=== PATIENT | male | born 1935 | race Caucasian/White ===

== ENCOUNTER 2016-09-26 06:37 | Emergency (ER) | payer MEDICARE, OTHER ==
[~2016-09-26] VITALS: Ht 170.2 cm; Wt 79.2 kg
[2016-09-26 06:37] VITALS: Ht 170.2 cm; Wt 79.2 kg
[~2016-09-26 06:37] MED LIST: ACET-1770 PO; ACET-2723 PO; AMOX500C2 PO; CALC-278 PO; CALC625T66 PO; CIPR250T6 PO; CYAN10006 INJ; FERR-49 PO; L.AC1CAP6 PO; LETR2.5T4 PO; MELA5TAB14 PO; NEBI5TAB8 PO; POLY17PO6 PO
--- OUTSIDE RECORDS SUMMARY | 2016-09-26 06:41 | XMS REPORT | Continuity of Care Document ---
Author Author Perri Rayo Address Unknown Phone Unavailable Care Team Providers Care Key Holder Name Role Phone [employer] Unavailable Unavailable Problems Medications Allergies, Adverse Reactions, Alerts Immunizations Results Vital Signs Encounters Procedures Plan of Care Social History Assessment and Plan Family History Value Date Source Advance Directives Order Name Results Value Date Source
--- OUTSIDE RECORDS SUMMARY | 2016-09-26 06:42 | XMS REPORT | Continuity of Care Document ---
Author Author [facility] Organization [facility] Address Unknown Phone Unavailable Support Name Relationship Address Phone SWATI BRUCE Caregiver [facility] [address] [place] [address] SARAH ADEN MD Caregiver [address] [place], [place] [phone] JESUS DYSON Next Of Kin [address] [place], [place] [address] CP Insurance Providers Payer Name Policy Number Subscriber Name Relationship Auto A Insurance [id number] Jorge Dyson 19 Self Medicare [facility] [employer] Pffs [id number] Jorge Dyson 19 Self Advance Directives Directive Response Recorded Date/Time Advanced Directives Type DPOA for Healthcare 04/12/14 4:30pm Problems Medical Problems Problem Onset Date Status Transient behavioral changes Unknown Active Transient confusion Unknown Active FALL Unknown Active nosebleed Unknown Active nondisplaced nasal arch fracture Unknown Active small laceration to Bridge of Nose-Dermabonded Unknown Active Right wrist sprain Unknown Active Minor head injury without loss of consciousness Unknown Active Fall at home Unknown Active Right wrist sprain Unknown Active Minor head injury without loss of consciousness Unknown Active Fall from slip, trip, or stumble Unknown Active Minor head injury without loss of consciousness Unknown Active Orbital contusion Unknown Active Traumatic hematoma of right orbit Unknown Active Scalp laceration Unknown Active Head contusion Unknown Active Traumatic hematoma of right eyebrow Unknown Active Suspected DVT (deep vein thrombosis) 04/10/2014 Active Leg swelling Unknown Active Cellulitis Unknown Active Leg swelling Unknown Active Cellulitis Unknown Active Medications Medication Dose Route Sig Days/Qty Instructions Order Date Discontinued Date Status Olmesartan Medoxomil 20 Mg PO DAILY 01/07/09 08/04/11 Discontinued Aspirin/Acetaminophen/Ed Carb 1 Tab PO DAILY 01/07/09 08/04/11 Discontinued Naproxen Sodium 220 Mg PO DAILY 11/01/10 08/04/11 Discontinued Docusate Sodium 100 Mg PO TWICE A DAY 11/05/10 08/04/11 Discontinued Polyethylene Glycol 3350 12 Ea PO DAILY 11/05/10 08/04/11 Discontinued [Asa 81MG] PO DAILY 11/05/10 08/04/11 Discontinued Benazepril Hcl 20 Mg PO DAILY 11/05/10 08/04/11 Discontinued Olmesartan Medoxomil 20 Mg PO DAILY 11/05/10 08/04/11 Discontinued Fondaparinux Sodium 2.5 Mg SQ DAILY 11/05/10 08/04/11 Discontinued Alendronate Sodium 70 Mg PO WEEKLY 08/04/11 09/08/12 Discontinued Nebivolol Hcl 5 Mg PO DAILY 08/04/11 10/21/11 Discontinued Tamoxifen Citrate 20 Mg PO DAILY 08/04/11 01/12/12 Discontinued Dutasteride 0.5 Mg PO DAILY 08/04/11 Active Furosemide 20 Mg PO TWICE A DAY 08/04/11 04/08/12 Discontinued Potassium Chloride 10 Meq PO DAILY 08/04/11 Active Calcium Citrate/Vitamin D3 1 Tab PO DAILY 08/04/11 09/08/12 Discontinued Docusate Sodium 100 Mg PO TWICE A DAY 08/04/11 Active Acetaminophen/Dp-Hydram Hcl 1 Tab PO BEDTIME 08/04/11 09/06/11 Discontinued [Rapaflo 8MG] BEDTIME 08/04/11 10/19/11 Discontinued Amoxicillin Trihydrate 500 Mg PO THREE TIMES A DAY started 08/04 and to take for 10 days for upper respiratory infection 08/08/11 09/01/11 Discontinued Guaifenesin/D-Methorphan Hb 2 Tab.sr PO TWICE A DAY 09/06/11 Discontinued Pravastatin Sodium 40 Mg PO BEDTIME 10/19/11 01/19/12 Discontinued Donepezil Hcl 10 Mg PO BEDTIME 10/19/11 Active Trospium Chloride 20 Mg PO TWICE A DAY 10/19/11 01/12/12 Discontinued Acetaminophen BEDTIME 10/19/11 01/30/12 Discontinued Magnesium Hydroxide 400 Mg PO PRN 10/19/11 01/30/12 Discontinued Nebivolol Hcl 5 Mg PO DAILY 10/21/11 Active Sulfamethoxazole/Trimethoprim 800-160 Tab PO BEDTIME 11/29/11 Discontinued Ferrous Sulfate 1 Tab PO DAILY 01/12/12 09/08/12 Discontinued [Tamoxifen] DAILY 01/19/12 08/27/12 Discontinued Warfarin Sodium 0 PO DAILY 01/30/12 04/08/12 Discontinued Oxycodone Hcl/Acetaminophen 1 - 2 Tab PO EVERY 4-6 HOURS 01/30/12 Discontinued [Al Hydroxide] 30 Ml NEEDED 01/30/12 03/16/12 Discontinued Polyethylene Glycol 1450 7 Gm PO DAILY 01/30/12 04/08/12 Discontinued Cephalexin Monohydrate 500 Mg PO FOUR TIMES DAILY 02/17/12 04/08/12 Discontinued Mirtazapine 7.5 Mg PO BEDTIME 02/17/12 08/27/12 Discontinued Meclizine Hcl 25 Mg PO NEEDED 04/08/12 08/27/12 Discontinued Acetaminophen/Diphenhydramine 1 Each PO HS PRN 04/08/12 Active Tamoxifen Citrate 20 Mg PO DAILY 08/27/12 Active Sulfamethoxazole/Trimethoprim 1 Tab PO BEDTIME 08/27/12 Active Calcium Polycarbophil 625 Mg PO DAILY 08/27/12 09/08/12 Discontinued Furosemide 20 Mg PO DAILY 08/27/12 09/04/12 Discontinued Memantine Hcl 5 Mg PO DAILY 09/03/12 Active Silodosin 8 Mg PO BEDTIME 09/04/12 Active Calcium Citrate/Vitamin D3 1 Tab PO DAILY 09/08/12 Active Calcium Polycarbophil 625 Mg PO DAILY 05/13/13 Active Meclizine Hcl 50 Mg PO NEEDED 05/13/13 Active Acetaminophen 650 PO DAILY 05/21/13 Active Aspirin 325 Mg PO DAILY 08/09/13 Active Ferrous Sulfate 1 Tab DAILY 01/24/14 Active Cephalexin 500 Mg PO THREE TIMES A DAY 30 Qty 04/10/14 Active Social History Social History Problem Response Recorded Date/Time Smoking Status Never smoker 12/01/2013 8:48pm Chewing Tobacco Status No 12/01/2013 8:48pm Hx Substance Use No 04/12/2014 4:41pm Hx Alcohol Use No 04/12/2014 4:41pm Has the pt used tobacco in the last 12 months No 05/21/2013 11:00pm Query Response Start Date Stop Date Smoking Status Former smoker Hospital Discharge Instructions No hospital discharge instructions. Plan of Care No plan of care. Functional Status Query Response Date Recorded Physical Hygiene Assist April 12, 2014 4:41pm Disabilities Visual April 12, 2014 4:41pm Devices Used Glasses Cane April 12, 2014 4:41pm Dressing Assist April 12, 2014 4:41pm Ambulation Self April 12, 2014 4:41pm Diet Self April 12, 2014 4:41pm Mental Status Alert Occasionally Confused Oriented April 12, 2014 4:41pm Disabilities Visual April 12, 2014 4:41pm Devices Used Glasses Cane April 12, 2014 4:41pm Physical Hygiene Assist April 12, 2014 4:41pm Dressing Assist April 12, 2014 4:41pm Ambulation Self April 12, 2014 4:41pm Diet Self April 12, 2014 4:41pm Allergies, Adverse Reactions, Alerts Allergen Type Severity Reaction Status Last Updated Lorazepam Allergy Severe ALTERED MENTAL STATUS Active 04/09/14 Oxycodone Allergy Unknown ALTERED MENTAL STATUS Active 04/09/14 Mirtazapine Allergy Unknown hallucinations/mood alterations Active Immunizations Name Given Type Hx Influenza Vaccination N NOT THIS YEAR Historical Hx Pneumococcal Vaccination Y WITHIN PAST 5 YRS. Historical Hx Tetanus, Diptheria, Pertussis No Historical Hx Influenza Vaccination N NOT THIS YEAR Historical Hx Tetanus Diptheria No Historical Hx Tetanus, Diptheria, Pertussis No Historical Hx Tetanus Toxoid Vaccination Yes Historical Vital Signs Acute Vital Signs Vital Response Date/Time Temperature (Fahrenheit) 97.4 deg F (96.8 - 99.1) Temperature (Calculated Celsius) 36.89661 degrees C (36.0 - 37.3) Pulse Rate (adult) 77 bpm (60 - 100) Respiratory Rate 18 breaths/min (10 - 20) O2 Sat by Pulse Oximetry 94 % (90 - 100) Blood Pressure 130/90 mm Hg Height 5 ft 7 in Weight 233 lb Body Mass Index 36.0 kg/m^2 Results Test Source Date Result Interp. Ref. Range Comments Activated Partial Thromboplast Time April 10, 2014 12:35am 31.5 SEC N 24-36 Alanine Aminotransferase (ALT/SGPT) April 10, 2014 12:35am 23 U/L N 21 -72 Albumin April 10, 2014 12:35am 3.8 G/DL N 3.5-5.0 Albumin/Globulin Ratio April 10, 2014 12:35am 1.3 RATIO N 1.1-2.2 Alkaline Phosphatase April 10, 2014 12:35am 88 U/L N 38-126 Amylase Level July 02, 2012 3:40am 122 U/L H 30-110 Anion Gap April 10, 2014 12:35am 9 MEQ/L N 5-15 Aspartate Amino Transf (AST/SGOT) April 10, 2014 12:35am 22 U/L N 17- 59 BUN/Creatinine Ratio April 10, 2014 12:35am 13 RATIO N 6-26 Band Neutrophils # February 07, 2014 3:00pm 0.1 T/MM3 - Band Neutrophils % February 07, 2014 3:00pm 1.0 % N 0-6 Basophilic Stippling November 16, 2010 5:05am 1+ - Basophils # (Auto) April 10, 2014 12:35am 0.1 T/MM3 N 0-0.2 Basophils # (Manual) May 17, 2013 4:35am 0.0 T/MM3 N 0-0.2 COMMENT DO CBC INSTEAD OF HEMAGRAM Basophils % (Manual) May 17, 2013 4:35am 0.0 % N 0-2 COMMENT DO CBC INSTEAD OF HEMAGRAM Basophils (%) (Auto) April 10, 2014 12:35am 0.5 % N 0-2 Blood Urea Nitrogen April 10, 2014 12:35am 21.0 MG/DL H 9-20 C-Reactive Protein May 27, 2013 4:59am 8.7 MG/L N 0-9 CA 27.29 April 16, 2013 1:27pm 10.50 U/ML N 0-37.7 Calcium Level April 10, 2014 12:35am 9.2 MG/DL N 8.4-10.2 Calculated Osmolality April 10, 2014 12:35am 272 MOSM/KG N 261-280 Carbon Dioxide Level April 10, 2014 12:35am 28 MEQ/L N 22-30 Carcinoembryonic Antigen November 09, 2010 5:05am 1.11 UG/L N 0-3.0 Chloride Level April 10, 2014 12:35am 103 MEQ/L N 98-107 Cholesterol Level August 09, 2011 6:56am 157 MG/DL N 132-199 COMMENT fasting lipid panel Cholesterol/HDL Ratio August 09, 2011 6:56am 3.0 RATIO N 0-5.0 COMMENT fasting lipid panel Conjugated Bilirubin April 16, 2013 1:27pm 0.00 MG/DL N 0.00-0.30 Creatine Kinase MB November 15, 2010 9:50am 0.8 NG/ML N 0-3.4 Creatinine April 10, 2014 12:35am 1.6 MG/DL H 0.8-1.5 D-Dimer February 17, 2012 12:05pm 1207 NG/ML H 0-230 <224 NG/ML= PRESUMPTIVE NEGATIVE FOR PE OR DVT>224 NG/ML=ADDITIONAL EVALUATION FOR PE OR DVT RECOMMENDED Differential Total Cells Counted November 17, 2010 5:04am 100 % - Eosinophils # (Auto) April 10, 2014 12:35am 0.5 T/MM3 N 0-0.5 Eosinophils # (Manual) February 07, 2014 3:00pm 0.5 T/MM3 N 0-0.5 Eosinophils % (Manual) February 07, 2014 3:00pm 5.0 % H 0-4 Eosinophils (%) (Auto) April 10, 2014 12:35am 4.1 % H 0-4 Erythrocyte Sedimentation Rate October 30, 2011 4:50am 63 MM/HR H 0-15 Free Prostate Specific Antigen November 06, 2010 5:40am Ref lab rpt scanned - --- 11/09/10 1733 ---PSAF previously reported as: SEND OUT Free Thyroxine June 17, 2013 12:30am 1.38 NG/DL N 0.78-2.19 Gentamicin Level Trough October 28, 2011 2:50pm 1.3 UG/ML N 0-2 COMMENT PER GENTAMICIN PROTOCOL Globulin April 10, 2014 12:35am 2.9 G/DL N 2.4-3.6 Glucose Level April 10, 2014 12:35am 105 MG/DL N 75-110 Hematocrit April 10, 2014 12:35am 39.7 % L 41-53 Hemoglobin April 10, 2014 12:35am 12.8 GM/DL L 13.5-17.5 Influenza Type A Antigen September 14, 2013 10:15pm Negative - Negative for Flu A protein antigen. Assay sensitivity is90%. Influenza Type B Antigen September 14, 2013 10:15pm Negative - Negative for Flu B protein antigen. Assay sensitivity is90%. LDL Cholesterol, Calculated August 09, 2011 6:56am 85.8 N 66-159 COMMENT fasting lipid panel Lipase July 02, 2012 3:40am 166 U/L N 23-300 Lymphocytes # (Auto) April 10, 2014 12:35am 3.0 T/MM3 N 1-4.8 Lymphocytes # (Manual) February 07, 2014 3:00pm 2.6 T/MM3 N 1-4.8 Lymphocytes % (Manual) February 07, 2014 3:00pm 25.0 % N 23-45 Lymphocytes (%) (Auto) April 10, 2014 12:35am 24.6 % N 23-45 Magnesium Level February 04, 2011 11:20am 2.1 MG/DL N 1.6-2.3 Mean Corpuscular Hemoglobin April 10, 2014 12:35am 34.0 UUG N 26-34 Mean Corpuscular Hemoglobin Concent April 10, 2014 12:35am 32.2 GM/DL N 31-37 Mean Corpuscular Volume April 10, 2014 12:35am 105.3 UM3 H 80-100 Mean Platelet Volume April 10, 2014 12:35am 10.7 UM3 N 9.4-12.4 Metamyelocytes # November 09, 2010 5:05am 0.2 T/MM3 - Metamyelocytes % November 09, 2010 5:05am 1.0 % H 0-0 Methylmalonic Acid November 11, 2010 5:00am Ref lab rpt scanned - --- 17/05 1155 ---METHY previously reported as: SEND OUT Monocytes # (Auto) April 10, 2014 12:35am 1.1 T/MM3 H 0-0.8 Monocytes # (Manual) February 07, 2014 3:00pm 0.5 T/MM3 N 0-0.8 Monocytes % (Manual) February 07, 2014 3:00pm 5.0 % N 0-9.0 Monocytes (%) (Auto) April 10, 2014 12:35am 9.4 % H 0-9.0 Neutrophils # (Auto) April 10, 2014 12:35am 7.4 T/MM3 N 1.8-7.7 Neutrophils # (Manual) February 07, 2014 3:00pm 6.5 T/MM3 N 1.8-7.7 Neutrophils % (Manual) February 07, 2014 3:00pm 64.0 % N 33-66 Neutrophils (%) (Auto) April 10, 2014 12:35am 61.2 % N 33-66 Phosphorus Level February 04, 2011 11:20am 3.2 MG/DL N 2.5-4.5 Platelet Count April 10, 2014 12:35am 246 T/MM3 N 130-400 Potassium Level April 10, 2014 12:35am 4.2 MEQ/L N 3.6-5 Prothromb Time International Ratio April 10, 2014 12:35am 1.05 N 0.81- 1.09 THERAPUTIC RANGE=2.00-3.00 FOR ANTI-THROMBOSIS THERAPUTIC RANGE=2.50- 3.50 FOR IMPLANTED VALVE RDW Standard Deviation April 10, 2014 12:35am 49.3 FL N 36.9-50.2 Red Blood Count April 10, 2014 12:35am 3.77 M/MM3 L 4.50-5.90 Serum Immunofixation November 08, 2010 5:45am Ref lab rpt scanned - --- 11/10/10 1121 ---IMMSWO previously reported as: SEND OUT Sodium Level April 10, 2014 12:35am 140 MEQ/L N 134-144 Stool Occult Blood November 07, 2010 1:26pm Negative - Has specimen been collected/obtained? Y Thyroid Stimulating Hormone (TSH) June 17, 2013 12:30am 3.44 MIU/L N 0.47-4.68 Total Bilirubin April 10, 2014 12:35am 0.60 MG/DL N 0.20-1.30 Total Creatine Kinase November 15, 2010 9:50am 70 U/L N 55-170 Total Protein April 10, 2014 12:35am 6.7 G/DL N 6.3-8.2 Triglycerides Level August 09, 2011 6:56am 91 MG/DL N 40-160 COMMENT fasting lipid panel Troponin I June 17, 2013 12:30am < 0.012 ng/ml 0-0.12 Unconjugated Bilirubin April 16, 2013 1:27pm 0.30 MG/DL N 0.00-1.10 Uric Acid December 02, 2011 1:26pm 7.6 MG/DL N 3.5-8.[address] ADEN Urine Amorphous Urates September 21, 2012 11:30am Few - Urine Bacteria February 07, 2014 3:00pm Trace H - Urine Bilirubin April 10, 2014 1:05am Negative - Has specimen been collected/obtained? Y Urine Blood April 10, 2014 1:05am Negative - Has specimen been collected/obtained? Y Urine Calcium Oxalate Crystals January 31, 2012 2:25pm --- 01/31/12 1456 --- U CA OX CR previously reported as: MANY - Urine Coarse Granular Casts September 02, 2011 2:35pm 1-3 /LPF - Has specimen been collected/obtained? Y Urine Collection Type April 10, 2014 1:05am Cleancatch-midstream - Has specimen been collected/obtained? Y Urine Color April 10, 2014 1:05am Yellow - Has specimen been collected/obtained? Y Urine Culture Indicated May 19, 2013 10:35am Cult not indicated - Has specimen been collected/obtained? Y Urine Glucose (UA) April 10, 2014 1:05am Negative - Has specimen been collected/obtained? Y Urine Ketones April 10, 2014 1:05am Negative - Has specimen been collected/obtained? Y Urine Leukocyte Esterase April 10, 2014 1:05am Negative - Has specimen been collected/obtained? Y Urine Mucus February 07, 2014 3:00pm Present - Urine Nitrite April 10, 2014 1:05am Negative - Has specimen been collected/obtained? Y Urine Protein April 10, 2014 1:05am Negative - Has specimen been collected/obtained? Y Urine RBC February 07, 2014 3:00pm None seen /HPF - Urine Random Creatinine November 12, 2010 6:00am 29.1 MG/DL - Has specimen been collected/obtained? Y Urine Random Sodium November 12, 2010 9:00am 92 MEQ/L H 30-90 Has specimen been collected/obtained? Y Urine Specific [place] April 10, 2014 1:05am 1.025 - Has specimen been collected/obtained? Y Urine Squamous Epithelial Cells May 19, 2013 10:35am None seen - Has specimen been collected/obtained? Y Urine Transitional Epithelial Cells September 11, 2011 9:10pm 0-1 /HPF - Has specimen been collected/obtained? Y Urine Turbidity April 10, 2014 1:05am Clear - Has specimen been collected/obtained? Y Urine Urobilinogen April 10, 2014 1:05am 0.2 EU/DL - Has specimen been collected/obtained? Y Urine WBC February 07, 2014 3:00pm None seen /HPF - Urine pH April 10, 2014 1:05am 6.0 - Has specimen been collected/ obtained? Y VLDL Cholesterol August 09, 2011 6:56am 18.2 MG/DL N 0-28 COMMENT fasting lipid panel Vitamin B12 Level November 09, 2010 5:05am 175 PG/ML L 239-931 White Blood Count April 10, 2014 12:35am 12.0 T/MM3 H 4.5-11.0 Chemistry Specimen Hemolysis April 10, 2014 12:35am < 15 0-25 0-25 : No Hemolysis.26-70: Slight Hemolysis - can falsely elevate K and Urine Protein. 71-285: Moderate Hemolysis - can falsely elevate K, Troponin I, CA 19-9, PTH, CSF GLucose, and Urine Protein, and can falsely decrease Phenytoin. 286-999: Gross Hemolysis - can falsely elevate K, Troponin I, CA 19-9, PTH, CSF Glucose, and Urine Protine, and can falsely decrease Phenytoin. Recommend specimen recollection. Urinalysis Comment April 10, 2014 1:05am Microscopic not ind. - Has specimen been collected/obtained? Y Glucometer May 20, 2013 6:02pm 125 mg/dL H 75-110 Lab Scanned Report February 07, 2014 5:32pm LAB TEST FORM REQUEST [id number] - HDL Cholesterol Direct August 09, 2011 6:56am 53 MG/DL N 40-60 COMMENT fasting lipid panel Methicillin-Resist S.aureus DNA PCR May 07, 2013 2:31pm Negative - Turbidity April 10, 2014 12:35am < 20 0-20 Reactive Lymphocytes % December 02, 2011 1:26pm 3.0 % H 0-[address] ADEN Glomerular Filtration Rate Calc April 10, 2014 12:35am 42 - Reactive Lymphocytes # December 02, 2011 1:26pm 0.4 T/MM3 H 0-[address] ADEN Immature Granulocyte # (Auto) April 10, 2014 12:35am 0.02 T/MM3 N 0.00 -0.03 Immature Granulocyte % (Auto) April 10, 2014 12:35am 0.2 % N 0.0-0.5 Venous Blood Lactate June 17, 2013 12:30am 1.5 MMOL/L N 0.6-2.2 Procalcitonin June 17, 2013 12:30am < 0.05 NG/ML - PCT </=0.5 ng/ mL - sepsis not likely;PCT >0.5 and </=2 ng/mL - sepsis possible; PCT >2 ng/mL - sepsis likely; PCT >/=10 ng/mL - systemic inflammatory response - sepsis or septic shock highly indicated. Icterus Index April 10, 2014 12:35am < 2 0-7 MRSA Specimen Source May 07, 2013 2:31pm Nasal - ET-Lod-V-Type Natriuretic Peptide June 17, 2013 12:30am 394 PG/ML H 0-175 Rule in cut points: <50 years old=450; 50-75 years old=900; >75 years old=1800; When utilizing ProBNP rule-in cut points, adjustment for impaired renal function is typically not required. Urine Microscopic Not Indicated April 08, 2012 8:15am Not indicated - Has specimen been collected/obtained? Y Blood Culture Blood June 17, 2013 12:50am NO GROWTH AFTER 5 DAYS Urine Culture Urine, [place] October 21, 2011 1:30am Staphylococcus Epidermidis Gram Stain Knee, Intraoperative Site-Left May 14, 2013 12:03pm Name: JORGE DYSON Unit #: [id number] : [id number] Sex: M Loc / Svc: ED DOS: 04/09/14 Signed Report #: [id number] DIAGNOSTIC IMAGING REPORT TYPE OF EXAM: US VENOUS DUPLEX, LOWER EXT RT Dictated By: VIDAL BEGUM MD INDICATION: ITS.REASON: right leg redness and swelling US VENOUS DUPLEX, LOWER EXT RT: Comparison: None Findings: There is no evidence for acute deep venous thrombosis in the right thigh. Specifically, serial graded compression was performed from the inguinal ligament to the popliteal bifurcation, on the right thigh, demonstrating appropriate compressibility of the deep venous system. In addition, color and pulsed Doppler demonstrate appropriate spontaneous flow, variation with respiration, and augmentation with calf compression. At the ankle, normal flow is identified in the posterior tibial veins; these vessels are also normal in caliber. Impression: No evidence of acute DVT in the right lower limb. There is a preliminary report by [facility]. . Procedures No known history of procedures. Encounters Encounter Location Date/Time Departed Emergency Room [facility] 04/12/14 4:26pm Departed Emergency Room [facility] 04/09/14 11:01pm Departed Emergency Room [facility] 04/02/14 8:39pm Departed Emergency Room [facility] 01/24/14 4:37pm Recent Diagnosis
--- OUTSIDE RECORDS SUMMARY | 2016-09-26 06:42 | XMS REPORT | Continuity of Care Document ---
Author Author [facility] Organization [facility] Address Unknown Phone Unavailable Support Name Relationship Address Phone SWATI BRUCE Caregiver [facility] [address] [place] [address] SARAH ADEN MD Caregiver [address] [place], [place] [phone] JESUS DYSON Next Of Kin [address] [place], [place] [id number] CP Insurance Providers Payer Name Policy Number Subscriber Name Relationship Auto A Insurance [id number] Jorge Dyson 19 Self Medicare [facility] [employer] Pffs [id number] Jorge Dyson 19 Self Advance Directives Directive Response Recorded Date/Time Advanced Directives Type None 04/09/14 11:04pm Problems Medical Problems Problem Onset Date Status [...] Cellulitis Unknown Active Leg swelling Unknown Active Medications Medication Dose Route Sig [...] Date/Time Smoking Status Never smoker 12/01/2013 8:48pm When did patient START smoking? cant remember 04/09/2014 11:15pm When did patient STOP smoking? cant remember 04/09/2014 11:15pm Chewing Tobacco Status No 12/01/2013 8:48pm Hx Substance Use No 04/09/2014 11:15pm Hx Alcohol Use No 04/09/2014 11:15pm Has the pt used tobacco in the last 12 months No 05/21/2013 11:00pm Query Response Start Date Stop Date Smoking Status Former smoker Hospital Discharge Instructions No hospital discharge instructions. Plan of Care No plan of care. Functional Status Query Response Date Recorded Physical Hygiene Assist April 09, 2014 11:15pm Disabilities Hearing April 09, 2014 11:15pm Devices Used None April 09, 2014 11:15pm Dressing Assist April 09, 2014 11:15pm Ambulation Assist April 09, 2014 11:15pm Diet Assist April 09, 2014 11:15pm Mental Status Alert Confused April 10, 2014 1:07am Disabilities Hearing April 09, 2014 11:15pm Devices Used None April 09, 2014 11:15pm Physical Hygiene Assist April 09, 2014 11:15pm Dressing Assist April 09, 2014 11:15pm Ambulation Assist April 09, 2014 11:15pm Diet Assist April 09, 2014 11:15pm Allergies, Adverse Reactions, Alerts Allergen Type Severity [...] F (96.8 - 99.1) Temperature (Calculated Celsius) 36.83484 degrees C (36.0 - 37.3) Pulse Rate (adult) 72 bpm (60 - 100) Respiratory Rate 15 breaths/min (10 - 20) O2 Sat by Pulse Oximetry 94 % (90 - 100) Blood Pressure 132/68 mm Hg Height 5 ft 9 in Weight 229 lb Body Mass Index 33.0 kg/m^2 Results Test Source Date Result Interp. [...] Has specimen been collected/obtained? Y Urine Specific [place] April 10, 2014 1:05am 1.025 - Has [...] 07, 2014 5:32pm LAB TEST FORM REQUEST [id number] - HDL Cholesterol Direct August 09, 2011 [...] Source May 07, 2013 2:31pm Nasal - NU-Bru-H-Type Natriuretic Peptide June 17, 2013 12:30am 394 [...] 2013 12:03pm Name: JORGE DYSON Unit #: [id number] : [id number] Sex: M Loc / Svc: ED DOS: 04/02/14 Signed Report #: [id number] DIAGNOSTIC IMAGING REPORT TYPE OF EXAM: CT HEAD W/O CONTRAST Dictated By: VIDAL BEGUM MD INDICATION: ITS.REASON: fall, hematoma, to head, laceration to head, hematoma R orbit CT HEAD W/O CONTRAST: Comparison: January 24, 2014 Technique: Axial CT images through the head were performed without contrast. FINDINGS: Atrophy. The ventricles are of stable. There is no evidence of acute intracranial hemorrhage, midline displacement, or mass effect. There are scattered areas of low attenuation in the white matter which most likely represent changes of chronic microvascular ischemia. The CT attenuation of the brain parenchyma is otherwise normal within the cerebellum, brain stem, and cerebral hemispheres. The tympanic cavities and mastoid air cells are free of appreciable disease. There are no definite fractures of the skull base, calvarium, or visualized portion of the midface. Right preseptal and supraorbital soft tissue swelling and laceration with hematoma. IMPRESSION: No CT evidence of acute traumatic intracranial injury. There is a preliminary report by [facility]. . Procedures No known history of procedures. Encounters Encounter Location Date/Time Departed Emergency Room [facility] 04/09/14 11:01pm Departed Emergency Room [facility] 04/02/14 8:39pm Departed Emergency Room [facility] 01/24/14 4:37pm Recent Diagnosis
--- OUTSIDE RECORDS SUMMARY | 2016-09-26 06:42 | XMS REPORT | Continuity of Care Document ---
Author Author [facility] Organization [facility] Address Unknown Phone Unavailable Support Name Relationship Address Phone SHERIN ARZOLA MD Caregiver [facility] [address] [place] [address] Unavailable SARAH ADEN MD Caregiver [address] [place], [place] [phone] DYSONJESUS MCKEON Next Of Kin [address] [place], [place] [id number] [phone] Insurance Providers Payer Name Policy Number Subscriber Name Relationship Auto A Insurance [id number] Jorge Dyson 19 Self Medicare [facility] [employer] Pffs [id number] Jorge Dyson 19 Self Problems Medical Problems Problem Onset Date Status [...] Traumatic hematoma of right eyebrow Unknown Active Medications Medication Dose Route Sig [...] Sulfamethoxazole/Trimethoprim 800-160 Tab PO BEDTIME 11/29/11 Discontinued Pravastatin Sodium 40 Mg PO BEDTIME 01/12/12 Active Ferrous Sulfate 1 Tab PO DAILY 01/12/12 [...] Ferrous Sulfate 1 Tab DAILY 01/24/14 Active Social History Social History Problem Response Recorded Date/Time Smoking Status Never smoker 12/01/2013 8:48pm When did patient STOP smoking? 1960 04/02/2014 9:04pm Chewing Tobacco Status No 12/01/2013 8:48pm Hx Substance Use No 04/02/2014 9:04pm Hx Alcohol Use No 04/02/2014 9:04pm Has the pt used tobacco in the last 12 months No 05/21/2013 11:00pm Query Response Start Date Stop Date Smoking Status Former smoker Hospital Discharge Instructions No hospital discharge instructions. Plan of Care No plan of care. Functional Status Query Response Date Recorded Physical Hygiene Assist April 02, 2014 9:04pm Disabilities Hearing April 02, 2014 9:04pm Devices Used Cane April 02, 2014 9:04pm Dressing Self April 02, 2014 9:04pm Ambulation Assist April 02, 2014 9:04pm Diet Self April 02, 2014 9:04pm Mental Status Alert Oriented April 02, 2014 11:09pm Disabilities Hearing April 02, 2014 9:04pm Devices Used Cane April 02, 2014 9:04pm Physical Hygiene Assist April 02, 2014 9:04pm Dressing Self April 02, 2014 9:04pm Ambulation Assist April 02, 2014 9:04pm Diet Self April 02, 2014 9:04pm Allergies, Adverse Reactions, Alerts Allergen Type Severity Reaction Status Last Updated Lorazepam Allergy Severe ALTERED MENTAL STATUS Active 04/02/14 Oxycodone Allergy Unknown ALTERED MENTAL STATUS Active 04/02/14 Mirtazapine Allergy Unknown hallucinations/mood alterations Active Immunizations [...] Vital Signs Vital Response Date/Time Temperature (Fahrenheit) 97.9 deg F (96.8 - 99.1) Temperature (Calculated Celsius) 36.88708 degrees C (36.0 - 37.3) Pulse Rate (adult) 62 bpm (60 - 100) Respiratory Rate 24 breaths/min (10 - 20) O2 Sat by Pulse Oximetry 95 % (90 - 100) Blood Pressure 135/67 mm Hg Height 5 ft 9 in Weight 230 lb Body Mass Index 34.0 kg/m^2 Results Test Source Date Result Interp. Ref. Range Comments Activated Partial Thromboplast Time December 01, 2013 10:20pm 29.5 SEC N 24- 36 Alanine Aminotransferase (ALT/SGPT) December 01, 2013 10:20pm 18 U/L L 21- 72 Albumin December 01, 2013 10:20pm 4.0 G/DL N 3.5-5.0 Albumin/Globulin Ratio December 01, 2013 10:20pm 1.4 RATIO N 1.1-2.2 Alkaline Phosphatase December 01, 2013 10:20pm 84 U/L N 38-126 Amylase Level July 02, 2012 3:40am 122 U/L H 30-110 Anion Gap February 07, 2014 3:00pm 10 MEQ/L N 5-15 Aspartate Amino Transf (AST/SGOT) December 01, 2013 10:20pm 25 U/L N 17-59 BUN/Creatinine Ratio February 07, 2014 3:00pm 15 RATIO N 6-26 Band Neutrophils # February 07, 2014 3:00pm 0.1 T/MM3 - Band Neutrophils % February 07, 2014 3:00pm 1.0 % N 0-6 Basophilic Stippling November 16, 2010 5:05am 1+ - Basophils # (Auto) September 14, 2013 9:30pm 0.1 T/MM3 N 0-0.2 Basophils # (Manual) May 17, 2013 4:35am 0.0 T/MM3 N 0-0.2 COMMENT DO CBC INSTEAD OF HEMAGRAM Basophils % (Manual) May 17, 2013 4:35am 0.0 % N 0-2 COMMENT DO CBC INSTEAD OF HEMAGRAM Basophils (%) (Auto) September 14, 2013 9:30pm 0.5 % N 0-2 Blood Urea Nitrogen February 07, 2014 3:00pm 22.0 MG/DL H 9-20 C-Reactive Protein May 27, 2013 4:59am 8.7 MG/L N 0-9 CA 27.29 April 16, 2013 1:27pm 10.50 U/ML N 0-37.7 Calcium Level February 07, 2014 3:00pm 9.5 MG/DL N 8.4-10.2 Calculated Osmolality February 07, 2014 3:00pm 280 MOSM/KG N 261-280 Carbon Dioxide Level February 07, 2014 3:00pm 30 MEQ/L N 22-30 Carcinoembryonic Antigen November 09, 2010 5:05am 1.11 UG/L N 0-3.0 Chloride Level February 07, 2014 3:00pm 104 MEQ/L N 98-107 Cholesterol Level August 09, 2011 6:56am 157 MG/DL N 132-199 COMMENT fasting lipid panel Cholesterol/HDL Ratio August 09, 2011 6:56am 3.0 RATIO N 0-5.0 COMMENT fasting lipid panel Conjugated Bilirubin April 16, 2013 1:27pm 0.00 MG/DL N 0.00-0.30 Creatine Kinase MB November 15, 2010 9:50am 0.8 NG/ML N 0-3.4 Creatinine February 07, 2014 3:00pm 1.5 MG/DL N 0.8-1.5 D-Dimer February 17, 2012 12:05pm 1207 NG/ML H 0-230 <224 NG/ML= PRESUMPTIVE NEGATIVE FOR PE OR DVT>224 NG/ML=ADDITIONAL EVALUATION FOR PE OR DVT RECOMMENDED Differential Total Cells Counted November 17, 2010 5:04am 100 % - Eosinophils # (Auto) September 14, 2013 9:30pm 0.2 T/MM3 N 0-0.5 Eosinophils # (Manual) February 07, 2014 3:00pm 0.5 T/MM3 N 0-0.5 Eosinophils % (Manual) February 07, 2014 3:00pm 5.0 % H 0-4 Eosinophils (%) (Auto) September 14, 2013 9:30pm 2.3 % N 0-4 Erythrocyte Sedimentation Rate October 30, 2011 4:50am 63 MM/HR H 0-15 Free Prostate Specific Antigen November 06, 2010 5:40am Ref lab rpt scanned - --- 11/09/10 1733 ---PSAF previously reported as: SEND OUT Free Thyroxine June 17, 2013 12:30am 1.38 NG/DL N 0.78-2.19 Gentamicin Level Trough October 28, 2011 2:50pm 1.3 UG/ML N 0-2 COMMENT PER GENTAMICIN PROTOCOL Globulin December 01, 2013 10:20pm 2.8 G/DL N 2.4-3.6 Glucose Level February 07, 2014 3:00pm 105 MG/DL N 75-110 Hematocrit February 07, 2014 3:00pm 42.8 % N 41-53 Hemoglobin February 07, 2014 3:00pm 13.8 GM/DL N 13.5-17.5 Influenza Type A Antigen September 14, [...] 166 U/L N 23-300 Lymphocytes # (Auto) September 14, 2013 9:30pm 1.1 T/MM3 N 1-4.8 Lymphocytes # (Manual) February 07, 2014 3:00pm 2.6 T/MM3 N 1-4.8 Lymphocytes % (Manual) February 07, 2014 3:00pm 25.0 % N 23-45 Lymphocytes (%) (Auto) September 14, 2013 9:30pm 10.9 % L 23-45 Magnesium Level February 04, 2011 11:20am 2.1 MG/DL N 1.6-2.3 Mean Corpuscular Hemoglobin February 07, 2014 3:00pm 33.7 UUG N 26-34 Mean Corpuscular Hemoglobin Concent February 07, 2014 3:00pm 32.2 GM/DL N 31-37 Mean Corpuscular Volume February 07, 2014 3:00pm 104.6 UM3 H 80-100 Mean Platelet Volume February 07, 2014 3:00pm 10.8 UM3 N 9.4-12.4 Metamyelocytes # November 09, 2010 5:05am 0.2 T/MM3 - Metamyelocytes % November 09, 2010 5:05am 1.0 % H 0-0 Methylmalonic Acid November 11, 2010 5:00am Ref lab rpt scanned - --- 17/05 1155 ---METHY previously reported as: SEND OUT Monocytes # (Auto) September 14, 2013 9:30pm 1.1 T/MM3 H 0-0.8 Monocytes # (Manual) February 07, 2014 3:00pm 0.5 T/MM3 N 0-0.8 Monocytes % (Manual) February 07, 2014 3:00pm 5.0 % N 0-9.0 Monocytes (%) (Auto) September 14, 2013 9:30pm 10.6 % H 0-9.0 Neutrophils # (Auto) September 14, 2013 9:30pm 7.6 T/MM3 N 1.8-7.7 Neutrophils # (Manual) February 07, 2014 3:00pm 6.5 T/MM3 N 1.8-7.7 Neutrophils % (Manual) February 07, 2014 3:00pm 64.0 % N 33-66 Neutrophils (%) (Auto) September 14, 2013 9:30pm 75.5 % H 33-66 Phosphorus Level February 04, 2011 11:20am 3.2 MG/DL N 2.5-4.5 Platelet Count February 07, 2014 3:00pm 245 T/MM3 N 130-400 Potassium Level February 07, 2014 3:00pm 4.6 MEQ/L N 3.6-5 Prothromb Time International Ratio December 01, 2013 10:20pm 1.03 N 0.86- 1.10 THERAPUTIC RANGE=2.00-3.00 FOR ANTI-THROMBOSIS THERAPUTIC RANGE=2.50- 3.50 FOR IMPLANTED VALVE RDW Standard Deviation February 07, 2014 3:00pm 46.8 FL N 36.9-50.2 Red Blood Count February 07, 2014 3:00pm 4.09 M/MM3 L 4.50-5.90 Serum Immunofixation November 08, 2010 5:45am Ref lab rpt scanned - --- 11/10/10 1121 ---IMMSWO previously reported as: SEND OUT Sodium Level February 07, 2014 3:00pm 144 MEQ/L N 134-144 Stool Occult Blood November 07, 2010 1:26pm Negative - Has specimen been collected/obtained? Y Thyroid Stimulating Hormone (TSH) June 17, 2013 12:30am 3.44 MIU/L N 0.47-4.68 Total Bilirubin December 01, 2013 10:20pm 0.40 MG/DL N 0.20-1.30 Total Creatine Kinase November 15, 2010 9:50am 70 U/L N 55-170 Total Protein December 01, 2013 10:20pm 6.8 G/DL N 6.3-8.2 Triglycerides Level August 09, [...] 2014 3:00pm Trace H - Urine Bilirubin February 07, 2014 3:00pm Negative - Urine Blood February 07, 2014 3:00pm Negative - Urine Calcium Oxalate Crystals January 31, 2012 2:25pm --- 01/31/12 1456 --- U CA OX CR previously reported as: MANY - Urine Coarse Granular Casts September 02, 2011 2:35pm 1-3 /LPF - Has specimen been collected/obtained? Y Urine Collection Type February 07, 2014 3:00pm Voided-not cc-midstr - Urine Color February 07, 2014 3:00pm Yellow - Urine Culture Indicated May 19, 2013 10:35am Cult not indicated - Has specimen been collected/obtained? Y Urine Glucose (UA) February 07, 2014 3:00pm Negative - Urine Ketones February 07, 2014 3:00pm Negative - Urine Leukocyte Esterase February 07, 2014 3:00pm Negative - Urine Mucus February 07, 2014 3:00pm Present - Urine Nitrite February 07, 2014 3:00pm Negative - Urine Protein February 07, 2014 3:00pm Negative - Urine RBC February 07, 2014 3:00pm None seen /HPF - Urine Random Creatinine November 12, 2010 6:00am 29.1 MG/DL - Has specimen been collected/obtained? Y Urine Random Sodium November 12, 2010 9:00am 92 MEQ/L H 30-90 Has specimen been collected/obtained? Y Urine Specific [place] February 07, 2014 3:00pm 1.020 - Urine Squamous Epithelial Cells May 19, 2013 10:35am None seen - Has specimen been collected/obtained? Y Urine Transitional Epithelial Cells September 11, 2011 9:10pm 0-1 /HPF - Has specimen been collected/obtained? Y Urine Turbidity February 07, 2014 3:00pm Clear - Urine Urobilinogen February 07, 2014 3:00pm 0.2 EU/DL - Urine WBC February 07, 2014 3:00pm None seen /HPF - Urine pH February 07, 2014 3:00pm 6.0 - VLDL Cholesterol August 09, 2011 6:56am 18.2 MG/DL N 0-28 COMMENT fasting lipid panel Vitamin B12 Level November 09, 2010 5:05am 175 PG/ML L 239-931 White Blood Count February 07, 2014 3:00pm 10.2 T/MM3 N 4.5-11.0 Chemistry Specimen Hemolysis February 07, 2014 3:00pm < 15 0-25 0-25: No Hemolysis.26-70: Slight Hemolysis - can falsely elevate K and Urine Protein. 71-285: Moderate Hemolysis - can falsely elevate K, Troponin I, CA 19-9, PTH, CSF GLucose, and Urine Protein, and can falsely decrease Phenytoin. 286-999: Gross Hemolysis - can falsely elevate K, Troponin I, CA 19-9, PTH, CSF Glucose, and Urine Protine, and can falsely decrease Phenytoin. Recommend specimen recollection. Urinalysis Comment January 24, 2014 6:25pm Microscopic not ind. - Has specimen been collected/obtained? Y Glucometer May 20, 2013 6:02pm 125 mg/dL H 75-110 Lab Scanned Report February 07, 2014 5:32pm LAB TEST FORM REQUEST [id number] - HDL Cholesterol Direct August 09, 2011 6:56am 53 MG/DL N 40-60 COMMENT fasting lipid panel Methicillin-Resist S.aureus DNA PCR May 07, 2013 2:31pm Negative - Turbidity February 07, 2014 3:00pm < 20 0-20 Reactive Lymphocytes % December 02, 2011 1:26pm 3.0 % H 0-[address] ADEN Glomerular Filtration Rate Calc February 07, 2014 3:00pm 45 - Reactive Lymphocytes # December 02, 2011 1:26pm 0.4 T/MM3 H 0-[address] ADEN Immature Granulocyte # (Auto) September 14, 2013 9:30pm 0.02 T/MM3 N 0.00- 0.03 Immature Granulocyte % (Auto) September 14, 2013 9:30pm 0.2 % N 0.0-0.5 Venous Blood Lactate June 17, 2013 12:30am 1.5 MMOL/L N 0.6-2.2 Procalcitonin June 17, 2013 12:30am < 0.05 NG/ML - PCT </=0.5 ng/ mL - sepsis not likely;PCT >0.5 and </=2 ng/mL - sepsis possible; PCT >2 ng/mL - sepsis likely; PCT >/=10 ng/mL - systemic inflammatory response - sepsis or septic shock highly indicated. Icterus Index February 07, 2014 3:00pm < 2 0-7 MRSA Specimen Source May 07, 2013 2:31pm Nasal - PJ-Oti-B-Type Natriuretic Peptide June 17, 2013 12:30am 394 [...] 2013 12:03pm Name: JORGE DYSON Unit #: [id number] : 1935 Sex: M Loc / Svc: ED DOS: 01/24/14 Signed Report #: [id number] DIAGNOSTIC IMAGING REPORT TYPE OF EXAM: CT HEAD W/O CONTRAST Dictated By: RUI RAMIREZ MD INDICATION: ITS.REASON: FALL, HEAD INJURY CT HEAD W/O CONTRAST: CT HEAD W/O CONTRAST Technique: Axial acquisitions were obtained through the brain without contrast. The ventricles and sulci are age-appropriate. The oliveira-white matter interface is maintained. There is no midline shift or mass effect. The basilar cisterns remain patent. There is no evidence for acute intracranial hemorrhage. IMPRESSION: No acute intracranial abnormality. . Procedures No known history of procedures. Encounters Encounter Location Date/Time Departed Emergency Room [facility] 04/02/14 8:39pm Departed Emergency Room [facility] 01/24/14 4:37pm Recent Diagnosis
--- OUTSIDE RECORDS SUMMARY | 2016-09-26 06:43 | XMS REPORT | Continuity of Care Document ---
Author Author [facility] Organization [facility] Address Unknown Phone Unavailable Support Name Relationship Address Phone SARAH ADEN MD Caregiver [address] [facility] [address] [place] [phone] JOSE CARROLL MD Caregiver [address] [place] [phone] JESUS DYSON Next Of Kin [address] [place], [place] [address] CP Insurance Providers Payer Name Policy Number Subscriber Name Relationship Medicare [employer] Pffs [id number] Jorge Dyson 19 Self Advance Directives Directive Response Recorded Date/Time Advanced Directives Type DPOA for Healthcare 01/24/14 5:40pm Problems Medical Problems Problem Onset Date Status [...] injury without loss of consciousness Unknown Active Medications Medication Dose Route Sig [...] 09/08/12 Active Calcium Polycarbophil 625 Mg PO TWICE A DAY 05/13/13 Active Meclizine Hcl 50 Mg PO NEEDED 05/13/13 Active Acetaminophen 650 PO DAILY 05/21/13 Active Aspirin 325 Mg PO DAILY 08/09/13 Active Ferrous Sulfate 1 Tab DAILY 01/24/14 Active Social History Social History Problem Response Recorded Date/Time Smoking Status Never smoker 12/01/2013 8:48pm Chewing Tobacco Status No 12/01/2013 8:48pm Hx Substance Use No 01/24/2014 5:40pm Hx Alcohol Use No 01/24/2014 5:40pm Has the pt used tobacco in the last 12 months No 05/21/2013 11:00pm Query Response Start Date Stop Date Smoking Status Former smoker Hospital Discharge Instructions No hospital discharge instructions. Plan of Care No plan of care. Functional Status Query Response Date Recorded Physical Hygiene Assist January 24, 2014 5:40pm Disabilities Hearing Visual January 24, 2014 5:40pm Devices Used Cane Walker January 24, 2014 5:40pm Dressing Assist January 24, 2014 5:40pm Ambulation Self January 24, 2014 5:40pm Diet Self January 24, 2014 5:40pm Mental Status Alert Forgetful January 24, 2014 5:40pm Disabilities Hearing Visual January 24, 2014 5:40pm Devices Used Cane Walker January 24, 2014 5:40pm Physical Hygiene Assist January 24, 2014 5:40pm Dressing Assist January 24, 2014 5:40pm Ambulation Self January 24, 2014 5:40pm Diet Self January 24, 2014 5:40pm Allergies, Adverse Reactions, Alerts Allergen Type Severity Reaction Status Last Updated Lorazepam Allergy Severe ALTERED MENTAL STATUS Active 01/24/14 Oxycodone Allergy Unknown ALTERED MENTAL STATUS Active 01/24/14 Mirtazapine Allergy Unknown hallucinations/mood alterations Active Immunizations Name Given Type Hx Influenza Vaccination Y 2013 Historical Hx Pneumococcal Vaccination Y WITHIN PAST 5 YRS. Historical Hx Tetanus, Diptheria, Pertussis No Historical Hx Influenza Vaccination Y 2013 Historical Hx Tetanus Diptheria No Historical Hx Tetanus, Diptheria, Pertussis No Historical Hx Tetanus Toxoid Vaccination Yes Historical Vital Signs Acute Vital Signs Vital Response Date/Time Temperature (Fahrenheit) 96.2 deg F (96.8 - 99.1) Temperature (Calculated Celsius) 35.21291 degrees C (36.0 - 37.3) Pulse Rate (adult) 61 bpm (60 - 100) Respiratory Rate 16 breaths/min (10 - 20) O2 Sat by Pulse Oximetry 96 % (90 - 100) Blood Pressure 119/66 mm Hg Height 5 ft 8 in Weight 234 lb Body Mass Index 35.0 kg/m^2 Results Test Source Date Result Interp. [...] 3:40am 122 U/L H 30-110 Anion Gap December 01, 2013 10:20pm 8 MEQ/L N 5-15 Aspartate Amino Transf (AST/SGOT) December 01, 2013 10:20pm 25 U/L N 17-59 BUN/Creatinine Ratio December 01, 2013 10:20pm 17 RATIO N 6-26 Band Neutrophils # December 01, 2013 10:20pm 0.5 T/MM3 - Band Neutrophils % December 01, 2013 10:20pm 4.0 % N 0-6 Basophilic Stippling November 16, [...] 0.5 % N 0-2 Blood Urea Nitrogen December 01, 2013 10:20pm 22.0 MG/DL H 9-20 C-Reactive Protein May 27, 2013 4:59am 8.7 MG/L N 0-9 CA 27.29 April 16, 2013 1:27pm 10.50 U/ML N 0-37.7 Calcium Level December 01, 2013 10:20pm 9.2 MG/DL N 8.4-10.2 Calculated Osmolality December 01, 2013 10:20pm 274 MOSM/KG N 261-280 Carbon Dioxide Level December 01, 2013 10:20pm 26 MEQ/L N 22-30 Carcinoembryonic Antigen November 09, 2010 5:05am 1.11 UG/L N 0-3.0 Chloride Level December 01, 2013 10:20pm 107 MEQ/L N 98-107 Cholesterol Level August 09, 2011 6:56am 157 MG/DL N 132-199 COMMENT fasting lipid panel Cholesterol/HDL Ratio August 09, 2011 6:56am 3.0 RATIO N 0-5.0 COMMENT fasting lipid panel Conjugated Bilirubin April 16, 2013 1:27pm 0.00 MG/DL N 0.00-0.30 Creatine Kinase MB November 15, 2010 9:50am 0.8 NG/ML N 0-3.4 Creatinine December 01, 2013 10:20pm 1.3 MG/DL N 0.8-1.5 D-Dimer February 17, 2012 12:05pm 1207 NG/ML H 0-230 <224 NG/ML= PRESUMPTIVE NEGATIVE FOR PE OR DVT>224 NG/ML=ADDITIONAL EVALUATION FOR PE OR DVT RECOMMENDED Differential Total Cells Counted November 17, 2010 5:04am 100 % - Eosinophils # (Auto) September 14, 2013 9:30pm 0.2 T/MM3 N 0-0.5 Eosinophils # (Manual) December 01, 2013 10:20pm 0.1 T/MM3 N 0-0.5 Eosinophils % (Manual) December 01, 2013 10:20pm 1.0 % N 0-4 Eosinophils (%) (Auto) September 14, 2013 [...] 10:20pm 2.8 G/DL N 2.4-3.6 Glucose Level December 01, 2013 10:20pm 90 MG/DL N 75-110 Hematocrit December 01, 2013 10:20pm 41.7 % N 41-53 Hemoglobin December 01, 2013 10:20pm 13.7 GM/DL N 13.5-17.5 Influenza Type A Antigen [...] 1.1 T/MM3 N 1-4.8 Lymphocytes # (Manual) December 01, 2013 10:20pm 3.4 T/MM3 N 1-4.8 Lymphocytes % (Manual) December 01, 2013 10:20pm 28.0 % N 23-45 Lymphocytes (%) (Auto) September 14, 2013 9:30pm 10.9 % L 23-45 Magnesium Level February 04, 2011 11:20am 2.1 MG/DL N 1.6-2.3 Mean Corpuscular Hemoglobin December 01, 2013 10:20pm 34.3 UUG H 26-34 Mean Corpuscular Hemoglobin Concent December 01, 2013 10:20pm 32.9 GM/DL N 31-37 Mean Corpuscular Volume December 01, 2013 10:20pm 104.3 UM3 H 80-100 Mean Platelet Volume December 01, 2013 10:20pm 10.7 UM3 N 9.4-12.4 Metamyelocytes # November 09, 2010 5:05am 0.2 T/MM3 - Metamyelocytes % November 09, 2010 5:05am 1.0 % H 0-0 Methylmalonic Acid November 11, 2010 5:00am Ref lab rpt scanned - --- 17/05 1155 ---METHY previously reported as: SEND OUT Monocytes # (Auto) September 14, 2013 9:30pm 1.1 T/MM3 H 0-0.8 Monocytes # (Manual) December 01, 2013 10:20pm 0.2 T/MM3 N 0-0.8 Monocytes % (Manual) December 01, 2013 10:20pm 2.0 % N 0-9.0 Monocytes (%) (Auto) September 14, 2013 9:30pm 10.6 % H 0-9.0 Neutrophils # (Auto) September 14, 2013 9:30pm 7.6 T/MM3 N 1.8-7.7 Neutrophils # (Manual) December 01, 2013 10:20pm 7.9 T/MM3 H 1.8-7.7 Neutrophils % (Manual) December 01, 2013 10:20pm 65.0 % N 33-66 Neutrophils (%) (Auto) September 14, 2013 9:30pm 75.5 % H 33-66 Phosphorus Level February 04, 2011 11:20am 3.2 MG/DL N 2.5-4.5 Platelet Count December 01, 2013 10:20pm 236 T/MM3 N 130-400 Potassium Level December 01, 2013 10:20pm 4.3 MEQ/L N 3.6-5 Prothromb Time International Ratio December 01, 2013 10:20pm 1.03 N 0.86- 1.10 THERAPUTIC RANGE=2.00-3.00 FOR ANTI-THROMBOSIS THERAPUTIC RANGE=2.50- 3.50 FOR IMPLANTED VALVE RDW Standard Deviation December 01, 2013 10:20pm 47.3 FL N 36.9-50.2 Red Blood Count December 01, 2013 10:20pm 4.00 M/MM3 L 4.50-5.90 Serum Immunofixation November 08, 2010 5:45am Ref lab rpt scanned - --- 11/10/10 1121 ---IMMSWO previously reported as: SEND OUT Sodium Level December 01, 2013 10:20pm 141 MEQ/L N 134-144 Stool Occult Blood November [...] 21, 2012 11:30am Few - Urine Bacteria May 19, 2013 10:35am Trace H - Has specimen been collected/obtained? Y Urine Bilirubin January 24, 2014 6:25pm Negative - Has specimen been collected/obtained? Y Urine Blood January 24, 2014 6:25pm Negative - Has specimen been collected/obtained? Y Urine Calcium Oxalate Crystals January 31, 2012 2:25pm --- 01/31/12 1456 --- U CA OX CR previously reported as: MANY - Urine Coarse Granular Casts September 02, 2011 2:35pm 1-3 /LPF - Has specimen been collected/obtained? Y Urine Collection Type January 24, 2014 6:25pm Voided-not cc-midstr - Has specimen been collected/obtained? Y Urine Color January 24, 2014 6:25pm Yellow - Has specimen been collected /obtained? Y Urine Culture Indicated May 19, 2013 10:35am Cult not indicated - Has specimen been collected/obtained? Y Urine Glucose (UA) January 24, 2014 6:25pm Negative - Has specimen been collected/obtained? Y Urine Ketones January 24, 2014 6:25pm Negative - Has specimen been collected/obtained? Y Urine Leukocyte Esterase January 24, 2014 6:25pm Negative - Has specimen been collected/obtained? Y Urine Mucus September 02, 2011 2:35pm Present - Has specimen been collected/obtained? Y Urine Nitrite January 24, 2014 6:25pm Negative - Has specimen been collected/obtained? Y Urine Protein January 24, 2014 6:25pm Negative - Has specimen been collected/obtained? Y Urine RBC May 19, 2013 10:35am 1-3 /HPF - Has specimen been collected/obtained? Y Urine Random Creatinine November 12, 2010 6:00am 29.1 MG/DL - Has specimen been collected/obtained? Y Urine Random Sodium November 12, 2010 9:00am 92 MEQ/L H 30-90 Has specimen been collected/obtained? Y Urine Specific [place] January 24, 2014 6:25pm 1.025 - Has specimen been collected/obtained? Y Urine Squamous Epithelial Cells May 19, 2013 10:35am None seen - Has specimen been collected/obtained? Y Urine Transitional Epithelial Cells September 11, 2011 9:10pm 0-1 /HPF - Has specimen been collected/obtained? Y Urine Turbidity January 24, 2014 6:25pm Clear - Has specimen been collected/obtained? Y Urine Urobilinogen January 24, 2014 6:25pm 0.2 EU/DL - Has specimen been collected/obtained? Y Urine WBC May 19, 2013 10:35am None seen /HPF - Has specimen been collected/obtained? Y Urine pH January 24, 2014 6:25pm 6.0 - Has specimen been collected/ obtained? Y VLDL Cholesterol August 09, 2011 6:56am 18.2 MG/DL N 0-28 COMMENT fasting lipid panel Vitamin B12 Level November 09, 2010 5:05am 175 PG/ML L 239-931 White Blood Count December 01, 2013 10:20pm 12.1 T/MM3 H 4.5-11.0 Chemistry Specimen Hemolysis December 01, 2013 10:20pm 28 H 0-25 0-25: No Hemolysis.26-70: Slight Hemolysis - [...] 125 mg/dL H 75-110 Lab Scanned Report May 07, 2013 6:54pm LAB TEST FORM REQUEST [id number] - HDL Cholesterol Direct August 09, 2011 6:56am 53 MG/DL N 40-60 COMMENT fasting lipid panel Methicillin-Resist S.aureus DNA PCR May 07, 2013 2:31pm Negative - Turbidity December 01, 2013 10:20pm < 20 0-20 Reactive Lymphocytes % December 02, 2011 1:26pm 3.0 % H 0-[address] ADEN Glomerular Filtration Rate Calc December 01, 2013 10:20pm 54 - Reactive Lymphocytes # December 02, 2011 [...] or septic shock highly indicated. Icterus Index December 01, 2013 10:20pm < 2 0-7 MRSA Specimen Source May 07, 2013 2:31pm Nasal - XI-Lel-I-Type Natriuretic Peptide June 17, 2013 12:30am 394 [...] 2013 12:03pm Name: JORGE DYSON Unit #: [id number] : 1935 Sex: M Loc / Svc: ED DOS: 12/01/13 Signed Report #: [id number] DIAGNOSTIC IMAGING REPORT TYPE OF EXAM: CT HEAD W/O CONTRAST Dictated By: VIDAL BEGUM MD INDICATION: ITS.REASON: FALL, LEFT SIDED FACIAL CONTUSION CT HEAD W/O CONTRAST: Comparison: August 09, 2013 Technique: Axial CT images through the head were performed without contrast. FINDINGS: The ventricles are of normal size, shape, and configuration for the patient's age. There is no evidence of acute intracranial hemorrhage, midline displacement, or mass effect. There are scattered areas of low attenuation in the white matter which most likely represent changes of chronic microvascular ischemia. Old right basal ganglia lacunar infarct. The CT attenuation of the brain parenchyma is otherwise normal within the cerebellum, brain stem, and cerebral hemispheres. The tympanic cavities and mastoid air cells are free of appreciable disease. There are no definite fractures of the skull base, calvarium, or visualized portion of the midface. IMPRESSION: No CT evidence of acute traumatic intracranial injury. There is a preliminary report by [facility]. . Procedures Procedure Status Date Provider(s) PLACE NEEDLE IN VEIN completed 12/01/13 JOSE CARROLL MD Encounters Encounter Location Date/Time Departed Emergency Room [facility] 01/24/14 4:37pm Departed Emergency Room [facility] 12/01/13 8:18pm Recent Diagnosis
--- OUTSIDE RECORDS SUMMARY | 2016-09-26 06:43 | XMS REPORT | Continuity of Care Document ---
Author Author [facility] Organization [facility] Address Unknown Phone Unavailable Allergies Active Description Code Type Severity Reaction Onset Reported/Identified Relationship to Patient Clinical Status Yes ATIVAN 19342302420 Drug Allergy N/A N/A Yes CODEINE Drug Allergy N/A N/A Yes IBUPROFEN 5640 Drug Allergy N/A N/A Yes MIRTAZAPINE [id number] Drug Allergy N/A N/A Yes OLANZAPINE [id number] Drug Allergy N/A N/A Yes OXYCODONE Drug Allergy N/A N/A Yes REMERON [id number] Drug Allergy N/A N/A Yes TAMOXIFEN CITRATE [id number] Drug Allergy N/A N/A Yes LORazepam NKMA N/A N/A 10/29/2013 Yes Ativan NKMA N/A N/A 12/26/2013 Yes haloperidol haloperidol Drug Allergy Severe VERY VIOLENT AND LOSSES REALITY 03/14/2016 Yes lorazepam lorazepam Drug Allergy Severe BECAME VERY VIOLENT 03/14/2016 Yes ibuprofen ibuprofen Drug Allergy Mild LOOSES REALITY 03/14/2016 Yes haloperidol haloperidol Drug Allergy Severe VERY VIOLENT/ CONFUSION 03/28/2016 Yes ibuprofen ibuprofen Drug Allergy Moderate CONFUSION 03/28/2016 Medications Medication Packaging Start Date Stop Date Route Dosage Sig [id number] 09/02/2014 ORAL daily [id number] 12/03/2014 ORAL daily Problems Procedures Results Test Result Range Urine Microscopic - 01/11/16 17:00 Epithelial Cells 2 /HPF Hyaline Casts 4 /LPF 0-3 Microscop. Exam Perf. performed NA RBC, Urine 0 /HPF 0-4 WBC, Urine 10 /HPF 0-4 Yeast, U Present NA Urinalysis with reflex microscopic - 01/11/16 17:00 Appearance Cloudy NA Bilirubin Negative NA Negative Blood Negative NA Negative Color Yellow NA Glucose, Urine Negative Negative Ketones Trace Negative Leukocyte Esterase Pos 1+ NA Negative Nitrites Negative NA Negative pH 5.5 NA 5.0-8.0 Protein Trace Negative Specific [place] 1.029 NA 1.003-1.030 UA Collection type Skinner NA Urobilinogen 0.2 mg/dL <1.0 METABOLIC PANEL, BASIC - 03/28/16 14:40 POTASSIUM 4.0 mmol/L 3.5-5.3 EST GFR (MDRD) > 60 mL/min > 59 ANION GAP 5 mmol/L 5-15 EST CrCl (CG) > 60 mL/min > 59 GLUCOSE 112 mg/dL 70-99 CALCIUM 9.5 mg/dL 8.5-10.1 BLOOD UREA NITROGEN 15 mg/dL 7-20 CREATININE 1.0 mg/dL 0.7-1.3 SODIUM 143 mmol/L 135-148 CHLORIDE 107 mmol/L 98-110 CARBON DIOXIDE 31 mmol/L 21-32 CBC - 03/28/16 14:40 MEAN CELL HGB 34.3 pg 27.0-33.0 MEAN CELL HGB CONCENTRATION 33.4 g/dL 32.0-37.0 MEAN CELL VOLUME 102.8 fl 80.0-100.0 RED BLOOD CELL 3.99 m/cumm 4.00-6.00 RED CELL DISTRIBUTION WIDTH 12.7 % 11.0- 15.6 WHITE BLOOD CELL 11.8 k/cumm 5.0-10.0 HEMOGLOBIN 13.7 gm/dL 14.0-18.0 HEMATOCRIT 41.0 % 40.0-54.0 PLATELET COUNT 262 k/cumm 150-400 Encounters ACCT No. Visit Date/Time Discharge Status Pt. Type Provider Facility Loc./Unit Complaint [id number] 09/26/2013 15:44:00 09/26/2013 23 :59:59 CLS Outpatient
--- OUTSIDE RECORDS SUMMARY | 2016-09-26 06:43 | XMS REPORT | Continuity of Care Document ---
Author Author [facility] Organization [facility] Address Unknown Phone Unavailable Support Name Relationship Address Phone JESUS DYSON Next Of Kin [address] [place] [address] Unavailable Insurance Providers Payer Name Policy Number Subscriber Name Relationship Medicare [facility] [employer] Pffs [id number] Mack Dyson 19 Self Problems No Known Problems or Medical conditions. 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 01/09/13 1:15pm Hx MRSA N 01/09/13 1:15pm HX of Cardiac Surgeries N 01/09/13 1:15pm HX of Reproductive Surgeries N 01/09/13 1:15pm HX of Endocrine Surgeries N 01/09/13 1:15pm HX of Throat Surgery Y tonsils 01/09/13 1:15pm HX of Neurological Surgeries N 01/09/13 1:15pm HX of Genitourinary Surgeries N 01/09/13 1:15pm Neurological CVA 11/28/11 10:23pm Social History History Response Recorded Date/Time Smoking Status Former smoker 01/09/13 1:15pm Chewing Tobacco Status N 01/09/13 1:15pm Hx Substance Use N 01/09/13 1:15pm Hx Alcohol Use N 01/09/13 1:15pm Has the pt used tobacco in the last 12 months N 09/07/12 2:18pm Allergies, Adverse Reactions, Alerts Allergen Type Severity Reaction Last Updated lorazepam Allergy Severe ALTERED MENTAL STATUS 01/09/13 mirtazapine Allergy hallucinations/mood alterations 01/09/13 Medications Medication Dose Units Route Sig Qty Days Ondansetron Hcl (Zofran) 4 Mg PO Q4HR PRN Meclizine Hcl 12.5 Mg PO BID PRN Acetaminophen 325 Mg PO Q5H PRN Polyethylene Glycol 3350 17 Gm PO DAILY Ferrous Gluconate 324 Mg PO WB Calcium Citrate/Vitamin D3 (Calcium Citrate + D Caplet) 1 Tab PO DAILY Silodosin (Rapaflo) 8 Mg PO HS Memantine Hcl (Namenda) 5 Mg PO DAILY Sulfamethoxazole/Trimethoprim (Bactrim Ds) 1 Tab PO HS Tamoxifen Citrate 20 Mg PO DAILY Hydrocodone Bit/Acetaminophen (Hydrocodone-Apap 5-500 Tab) PRN Acetaminophen/Diphenhydramine (Acetaminophen Pm Caplet) 1 Each PO HS PRN Pravastatin Sodium 40 Mg PO HS Nebivolol Hcl (Bystolic) 5 Mg PO DAILY Donepezil Hcl (Aricept) 10 Mg PO HS Docusate Sodium (Stool Softener) 100 Mg PO BID Potassium Chloride 10 Meq PO DAILY Dutasteride (Avodart) 0.5 Mg PO DAILY Calcium Polycarbophil (Fibercon) 625 Mg PO DAILY Ferrous Sulfate (Iron) 1 Tab PO DAILY Calcium Citrate/Vitamin D3 (Citracal + D Caplet) 1 Tab PO DAILY Alendronate Sodium 70 Mg PO WEEKLY Furosemide (Lasix) 20 Mg PO DAILY Meclizine Hcl 25 Mg PO PRN Mirtazapine 7.5 Mg PO HS [Tamoxifen] DAILY Cephalexin Monohydrate (Cephalexin) 500 Mg PO QID Polyethylene Glycol 1450 (Polyethylene Glycol) 7 Gm PO DAILY Warfarin Sodium 0 PO DAILY Furosemide 20 Mg PO BID [Al Hydroxide] 30 Ml PRN Oxycodone Hcl/Acetaminophen (Oxycodone W-Apap 5-325 Tab) 1 - 2 Tab PO Q4- 6H Sulfamethoxazole/Trimethoprim (Bactrim 400-80 Mg Tablet) 800-160 Tab PO HS Magnesium Hydroxide (Milk Of Magnesia) 400 Mg PO PRN Acetaminophen (Tylenol) HS Pravastatin Sodium 40 Mg PO HS Trospium Chloride (Sanctura) 20 Mg PO BID Tamoxifen Citrate 20 Mg PO DAILY Nebivolol Hcl (Bystolic) 5 Mg PO DAILY Guaifenesin/D-Methorphan Hb (Mucinex Dm Tablet) 2 Tab.sr PO BID [Rapaflo 8MG] HS Immunizations Name Given Type Hx Influenza Vaccination Y 2012 H Hx Pneumococcal Vaccination Y 2011 H Hx Tetanus, Diptheria, Pertussis Y 10/2010 H Response Recorded Date/Time Status not known Unknown Results No Known Relevant Diagnostic Tests, Laboratory Data and/or Discharge Summary. Procedures Procedure Code Date CATARACT SURG W/IOL 1 STAGE 33179 12/10/08 CATARACT SURG W/IOL 1 STAGE 02379 01/07/09 FEMORAL BIOPSY 77.45 11/02/10 CLOSED RED-INT FIX FEMUR 79.15 11/02/10 AMBULAT & GAIT TRAINING 93.22 11/08/10 PT EXERCISE NEC 93.19 11/08/10 OCCUPATIONAL THERAPY 93.83 11/06/10 HYDRATION IV INFUSION INIT [id number] 08/04/11 PT EXERCISE NEC 93.19 09/07/11 OCCUPATIONAL THERAPY 93.83 09/07/11 OTHER SPEECH THERAPY 93.75 09/08/11 AMBULAT & GAIT TRAINING 93.22 09/14/11 REMOVAL OF SUPPORT IMPLANT 75088 10/20/11 TOTAL HIP REPLACEMENT 81.51 01/26/12 REMOVE INT FIX DEV-FEMUR 78.65 01/26/12 HIP BEARING SURFACE, [id number] 00.74 01/26/12 PT EXERCISE NEC 93.19 01/31/12 AMBULAT & GAIT TRAINING 93.22 01/31/12 OCCUPATIONAL THERAPY 93.83 01/31/12 HYDRATION IV INFUSION INIT 55599 04/08/12 THER/PROPH/DIAG INJ IV PUSH [id number] 07/02/12 TOTAL HIP REPLACEMENT 81.51 09/04/12 HIP BEARING SURFACE, [id number] 00.74 09/04/12 PT EXERCISE NEC 93.19 09/08/12 AMBULAT & GAIT TRAINING 93.22 09/08/12 OCCUPATIONAL THERAPY 93.83 09/08/12 THER/PROPH/DIAG INJ IV PUSH [id number] 01/09/13 HYDRATE IV INFUSION ADD-ON [id number] 01/09/13 Encounters Encounter Location Date/Time Departed Emergency Room [facility] 01/09/13 12:47pm Discharged Inpatient [facility] 09/07/12 1:58pm
--- OUTSIDE RECORDS SUMMARY | 2016-09-26 06:44 | XMS REPORT | Continuity of Care Document ---
Author Author [facility] Organization [facility] Address Unknown Phone Unavailable Support Name Relationship Address Phone SARAH ADEN MD Caregiver [address] [facility] [address] [place] [phone] GITA HASTINGS MD Caregiver [address] [place] [address] KIELMARIY Next Of Kin [address] [place], [place] [address] CP Insurance Providers Payer Name Policy Number Subscriber Name Relationship Premises Med(Medicare/Caid/Tr [id number] Jorge Dyson 19 Self Medicare [facility] Solutions Pffs [id number] Jorge Dyson 19 Self Advance Directives Directive Response Recorded Date/Time Advanced Directives Type Living Will DPOA for Healthcare 06/21/14 8:52pm Problems Medical Problems Problem Onset Date Status [...] Leg swelling Unknown Active Cellulitis Unknown Active Traumatic hematoma of right eyebrow Unknown Active Fall from chair Unknown Active Traumatic hematoma of forehead Unknown Active Skin tear of right upper arm without complication Unknown Active Fall from chair Unknown Active Medications Medication Dose Route Sig [...] History Social History Problem Response Recorded Date/Time Chewing Tobacco Status No 12/01/2013 8:48pm Hx Substance Use No 06/21/2014 9:24pm Hx Alcohol Use No 06/21/2014 9:24pm Has the pt used tobacco in the last 12 months No 05/21/2013 11:00pm Tobacco Usage none 04/13/2014 7:13am Query Response Start Date Stop Date Smoking Status Never smoker Hospital Discharge Instructions No hospital discharge instructions. Plan of Care No plan of care. Functional Status Query Response Date Recorded Physical Hygiene Self June 21, 2014 9:24pm Disabilities Visual June 21, 2014 9:24pm Devices Used Glasses Cane Walker June 21, 2014 9:24pm Dressing Assist June 21, 2014 9:24pm Ambulation Self June 21, 2014 9:24pm Diet Self June 21, 2014 9:24pm Mental Status Alert June 21, 2014 10:56pm Disabilities Visual June 21, 2014 9:24pm Devices Used Glasses Cane Walker June 21, 2014 9:24pm Physical Hygiene Self June 21, 2014 9:24pm Dressing Assist June 21, 2014 9:24pm Ambulation Self June 21, 2014 9:24pm Diet Self June 21, 2014 9:24pm Allergies, Adverse Reactions, Alerts Allergen Type Severity Reaction Status Last Updated Lorazepam Allergy Severe ALTERED MENTAL STATUS Active 06/21/14 Oxycodone Allergy Unknown ALTERED MENTAL STATUS Active 06/21/14 Mirtazapine Allergy Unknown hallucinations/mood alterations Active Immunizations Name Given Type Hx Influenza Vaccination Y 2012 Historical Hx Pneumococcal Vaccination Y WITHIN PAST 5 YRS. Historical Hx Tetanus, Diptheria, Pertussis Y 2013 Historical Hx Influenza Vaccination Y 2012 Historical Hx Tetanus Diptheria Y APR 2014 Historical Hx Tetanus, Diptheria, Pertussis Y 2013 Historical Hx Tetanus Toxoid Vaccination Yes Historical Td (adult), adsorbed 04/02/14 Administered Vital Signs Acute Vital Signs Vital Response Date/Time Temperature (Fahrenheit) 97.0 deg F (96.8 - 99.1) Temperature (Calculated Celsius) 36.16870 degrees C (36.0 - 37.3) Pulse Rate (adult) 68 bpm (60 - 100) Respiratory Rate 20 breaths/min (10 - 20) O2 Sat by Pulse Oximetry 95 % (90 - 100) Blood Pressure 132/59 mm Hg Height 5 ft 8 in Weight 228 lb Body Mass Index 34.0 kg/m^2 Results Test Source Date Result Interp. Ref. Range Comments Activated Partial Thromboplast Time April 10, 2014 12:35am 31.5 SEC N 24-36 Alanine Aminotransferase (ALT/SGPT) June 21, 2014 10:03pm 23 U/L N 21-72 Albumin June 21, 2014 10:03pm 3.8 G/DL N 3.5-5.0 Albumin/Globulin Ratio June 21, 2014 10:03pm 1.5 RATIO N 1.1-2.2 Alkaline Phosphatase June 21, 2014 10:03pm 72 U/L N 38-126 Amylase Level July 02, 2012 3:40am 122 U/L H 30-110 Anion Gap June 21, 2014 10:03pm 9 MEQ/L N 5-15 Aspartate Amino Transf (AST/SGOT) June 21, 2014 10:03pm 19 U/L N 17- 59 BUN/Creatinine Ratio June 21, 2014 10:03pm 14 RATIO N 6-26 Band Neutrophils # February 07, 2014 3:00pm 0.1 T/MM3 - Band Neutrophils % February 07, 2014 3:00pm 1.0 % N 0-6 Basophilic Stippling November 16, 2010 5:05am 1+ - Basophils # (Auto) June 21, 2014 10:03pm 0.1 T/MM3 N 0-0.2 Basophils # (Manual) May 17, 2013 4:35am 0.0 T/MM3 N 0-0.2 COMMENT DO CBC INSTEAD OF HEMAGRAM Basophils % (Manual) May 17, 2013 4:35am 0.0 % N 0-2 COMMENT DO CBC INSTEAD OF HEMAGRAM Basophils (%) (Auto) June 21, 2014 10:03pm 1.1 % N 0-2 Blood Urea Nitrogen June 21, 2014 10:03pm 19.0 MG/DL N 9-20 C-Reactive Protein May 27, 2013 4:59am 8.7 MG/L N 0-9 CA 27.29 April 16, 2013 1:27pm 10.50 U/ML N 0-37.7 Calcium Level June 21, 2014 10:03pm 9.5 MG/DL N 8.4-10.2 Calculated Osmolality June 21, 2014 10:03pm 278 MOSM/KG N 261-280 Carbon Dioxide Level June 21, 2014 10:03pm 28 MEQ/L N 22-30 Carcinoembryonic Antigen November 09, 2010 5:05am 1.11 UG/L N 0-3.0 Chloride Level June 21, 2014 10:03pm 106 MEQ/L N 98-107 Cholesterol Level August 09, 2011 6:56am 157 MG/DL N 132-199 COMMENT fasting lipid panel Cholesterol/HDL Ratio August 09, 2011 6:56am 3.0 RATIO N 0-5.0 COMMENT fasting lipid panel Conjugated Bilirubin April 16, 2013 1:27pm 0.00 MG/DL N 0.00-0.30 Creatine Kinase MB November 15, 2010 9:50am 0.8 NG/ML N 0-3.4 Creatinine June 21, 2014 10:03pm 1.4 MG/DL N 0.8-1.5 D-Dimer February 17, 2012 12:05pm 1207 NG/ML H 0-230 <224 NG/ML= PRESUMPTIVE NEGATIVE FOR PE OR DVT>224 NG/ML=ADDITIONAL EVALUATION FOR PE OR DVT RECOMMENDED Differential Total Cells Counted November 17, 2010 5:04am 100 % - Eosinophils # (Auto) June 21, 2014 10:03pm 0.3 T/MM3 N 0-0.5 Eosinophils # (Manual) February 07, 2014 3:00pm 0.5 T/MM3 N 0-0.5 Eosinophils % (Manual) February 07, 2014 3:00pm 5.0 % H 0-4 Eosinophils (%) (Auto) June 21, 2014 10:03pm 3.5 % N 0-4 Erythrocyte Sedimentation Rate October 30, 2011 4:50am 63 MM/HR H 0-15 Free Prostate Specific Antigen November 06, 2010 5:40am Ref lab rpt scanned - --- 11/09/10 1733 ---PSAF previously reported as: SEND OUT Free Thyroxine June 17, 2013 12:30am 1.38 NG/DL N 0.78-2.19 Gentamicin Level Trough October 28, 2011 2:50pm 1.3 UG/ML N 0-2 COMMENT PER GENTAMICIN PROTOCOL Globulin June 21, 2014 10:03pm 2.6 G/DL N 2.4-3.6 Glucose Level June 21, 2014 10:03pm 114 MG/DL H 75-110 Hematocrit June 21, 2014 10:03pm 40.6 % L 41-53 Hemoglobin June 21, 2014 10:03pm 13.2 GM/DL L 13.5-17.5 Influenza Type A Antigen [...] 166 U/L N 23-300 Lymphocytes # (Auto) June 21, 2014 10:03pm 2.4 T/MM3 N 1-4.8 Lymphocytes # (Manual) February 07, 2014 3:00pm 2.6 T/MM3 N 1-4.8 Lymphocytes % (Manual) February 07, 2014 3:00pm 25.0 % N 23-45 Lymphocytes (%) (Auto) June 21, 2014 10:03pm 25.6 % N 23-45 Magnesium Level February 04, 2011 11:20am 2.1 MG/DL N 1.6-2.3 Mean Corpuscular Hemoglobin June 21, 2014 10:03pm 34.2 UUG H 26-34 Mean Corpuscular Hemoglobin Concent June 21, 2014 10:03pm 32.5 GM/DL N 31-37 Mean Corpuscular Volume June 21, 2014 10:03pm 105.2 UM3 H 80-100 Mean Platelet Volume June 21, 2014 10:03pm 10.5 UM3 N 9.4-12.4 Metamyelocytes # November 09, 2010 5:05am 0.2 T/MM3 - Metamyelocytes % November 09, 2010 5:05am 1.0 % H 0-0 Methylmalonic Acid November 11, 2010 5:00am Ref lab rpt scanned - --- 17/05 1155 ---METHY previously reported as: SEND OUT Monocytes # (Auto) June 21, 2014 10:03pm 0.8 T/MM3 N 0-0.8 Monocytes # (Manual) February 07, 2014 3:00pm 0.5 T/MM3 N 0-0.8 Monocytes % (Manual) February 07, 2014 3:00pm 5.0 % N 0-9.0 Monocytes (%) (Auto) June 21, 2014 10:03pm 8.6 % N 0-9.0 Neutrophils # (Auto) June 21, 2014 10:03pm 5.6 T/MM3 N 1.8-7.7 Neutrophils # (Manual) February 07, 2014 3:00pm 6.5 T/MM3 N 1.8-7.7 Neutrophils % (Manual) February 07, 2014 3:00pm 64.0 % N 33-66 Neutrophils (%) (Auto) June 21, 2014 10:03pm 60.9 % N 33-66 Phosphorus Level February 04, 2011 11:20am 3.2 MG/DL N 2.5-4.5 Platelet Count June 21, 2014 10:03pm 209 T/MM3 N 130-400 Potassium Level June 21, 2014 10:03pm 4.5 MEQ/L N 3.6-5 Prothromb Time International Ratio April 10, 2014 12:35am 1.05 N 0.81- 1.09 THERAPUTIC RANGE=2.00-3.00 FOR ANTI-THROMBOSIS THERAPUTIC RANGE=2.50- 3.50 FOR IMPLANTED VALVE RDW Standard Deviation June 21, 2014 10:03pm 46.3 FL N 36.9-50.2 Red Blood Count June 21, 2014 10:03pm 3.86 M/MM3 L 4.50-5.90 Serum Immunofixation November 08, 2010 5:45am Ref lab rpt scanned - --- 11/10/10 1121 ---IMMSWO previously reported as: SEND OUT Sodium Level June 21, 2014 10:03pm 143 MEQ/L N 134-144 Stool Occult Blood November 07, 2010 1:26pm Negative - Has specimen been collected/obtained? Y Thyroid Stimulating Hormone (TSH) June 17, 2013 12:30am 3.44 MIU/L N 0.47-4.68 Total Bilirubin June 21, 2014 10:03pm 0.30 MG/DL N 0.20-1.30 Total Creatine Kinase November 15, 2010 9:50am 70 U/L N 55-170 Total Protein June 21, 2014 10:03pm 6.4 G/DL N 6.3-8.2 Triglycerides Level August 09, [...] 2014 3:00pm Trace H - Urine Bilirubin June 21, 2014 10:15pm Negative - Has specimen been collected/obtained? Y Urine Blood June 21, 2014 10:15pm Negative - Has specimen been collected/obtained? Y Urine Calcium Oxalate Crystals January 31, 2012 2:25pm --- 01/31/12 1456 --- U CA OX CR previously reported as: MANY - Urine Coarse Granular Casts September 02, 2011 2:35pm 1-3 /LPF - Has specimen been collected/obtained? Y Urine Collection Type June 21, 2014 10:15pm Voided-not cc-midstr - Has specimen been collected/obtained? Y Urine Color June 21, 2014 10:15pm Yellow - Has specimen been collected/obtained? Y Urine Culture Indicated May 19, 2013 10:35am Cult not indicated - Has specimen been collected/obtained? Y Urine Glucose (UA) June 21, 2014 10:15pm Negative - Has specimen been collected/obtained? Y Urine Ketones June 21, 2014 10:15pm Negative - Has specimen been collected/obtained? Y Urine Leukocyte Esterase June 21, 2014 10:15pm Negative - Has specimen been collected/obtained? Y Urine Mucus February 07, 2014 3:00pm Present - Urine Nitrite June 21, 2014 10:15pm Negative - Has specimen been collected/obtained? Y Urine Protein June 21, 2014 10:15pm Negative - Has specimen been collected/obtained? Y Urine RBC February 07, 2014 3:00pm None seen /HPF - Urine Random Creatinine November 12, 2010 6:00am 29.1 MG/DL - Has specimen been collected/obtained? Y Urine Random Sodium November 12, 2010 9:00am 92 MEQ/L H 30-90 Has specimen been collected/obtained? Y Urine Specific [place] June 21, 2014 10:15pm 1.025 - Has specimen been collected/obtained? Y Urine Squamous Epithelial Cells May 19, 2013 10:35am None seen - Has specimen been collected/obtained? Y Urine Transitional Epithelial Cells September 11, 2011 9:10pm 0-1 /HPF - Has specimen been collected/obtained? Y Urine Turbidity June 21, 2014 10:15pm Clear - Has specimen been collected/obtained? Y Urine Urobilinogen June 21, 2014 10:15pm 0.2 EU/DL - Has specimen been collected/obtained? Y Urine WBC February 07, 2014 3:00pm None seen /HPF - Urine pH June 21, 2014 10:15pm 5.5 - Has specimen been collected/ obtained? Y VLDL Cholesterol August 09, 2011 6:56am 18.2 MG/DL N 0-28 COMMENT fasting lipid panel Vitamin B12 Level November 09, 2010 5:05am 175 PG/ML L 239-931 White Blood Count June 21, 2014 10:03pm 9.3 T/MM3 N 4.5-11.0 Chemistry Specimen Hemolysis June 21, 2014 10:03pm < 15 0-25 0-25 : No Hemolysis.26-70: [...] decrease Phenytoin. Recommend specimen recollection. Urinalysis Comment June 21, 2014 10:15pm Microscopic not ind. - Has specimen been collected/obtained? Y Glucometer May 20, 2013 6:02pm 125 mg/dL H 75-110 Lab Scanned Report February 07, 2014 5:32pm LAB TEST FORM REQUEST [id number] - HDL Cholesterol Direct August 09, 2011 6:56am 53 MG/DL N 40-60 COMMENT fasting lipid panel Methicillin-Resist S.aureus DNA PCR May 07, 2013 2:31pm Negative - Turbidity June 21, 2014 10:03pm < 20 0-20 Reactive Lymphocytes % December 02, 2011 1:26pm 3.0 % H 0-[address] ADEN Glomerular Filtration Rate Calc June 21, 2014 10:03pm 49 - Reactive Lymphocytes # December 02, 2011 1:26pm 0.4 T/MM3 H 0-[address] ADEN Immature Granulocyte # (Auto) June 21, 2014 10:03pm 0.03 T/MM3 N 0.00-0.03 Immature Granulocyte % (Auto) June 21, 2014 10:03pm 0.3 % N 0.0-0.5 Venous Blood Lactate June 17, 2013 12:30am 1.5 MMOL/L N 0.6-2.2 Procalcitonin June 17, 2013 12:30am < 0.05 NG/ML - PCT </=0.5 ng/ mL - sepsis not likely;PCT >0.5 and </=2 ng/mL - sepsis possible; PCT >2 ng/mL - sepsis likely; PCT >/=10 ng/mL - systemic inflammatory response - sepsis or septic shock highly indicated. Icterus Index June 21, 2014 10:03pm < 2 0-7 MRSA Specimen Source May 07, 2013 2:31pm Nasal - NR-Ztv-P-Type Natriuretic Peptide June 17, 2013 12:30am 394 [...] 2013 12:03pm Name: JORGE DYSON Unit #: [id number] : 1935 Sex: M Loc / Svc: ED DOS: 04/09/14 Signed Report #: [id number] DIAGNOSTIC IMAGING REPORT TYPE OF EXAM: US [...] limb. There is a preliminary report by [facility]. . Procedures Procedure Status Date Provider(s) RPR S/N/AX/GEN/TRNK 2.5CM/< completed 04/02/14 SHERIN ARZOLA MD Encounters Encounter Location Date/Time Departed Emergency Room [facility] 06/21/14 8:50pm Departed Emergency Room [facility] 04/12/14 4:26pm Departed Emergency Room [facility] 04/09/14 11:01pm Departed Emergency Room [facility] 04/02/14 8:39pm Recent Diagnosis
--- OUTSIDE RECORDS SUMMARY | 2016-09-26 06:58 | XMS REPORT | Continuity of Care Document ---
Author Author Perri Rayo Address Unknown Phone Unavailable Care Team Providers Care Spring Inspector Name Role Phone [employer] Unavailable Unavailable Problems Medications Allergies, Adverse Reactions, Alerts Immunizations Results Vital Signs Encounters Procedures Plan of Care Social History Assessment and Plan Family History Value Date Source Advance Directives Order Name Results Value Date Source
--- OUTSIDE RECORDS SUMMARY | 2016-09-26 06:58 | XMS REPORT | Continuity of Care Document ---
Author Author [facility] Organization [facility] Address Unknown Phone Unavailable Support Name Relationship Address Phone SWATI BRUCE Caregiver [facility] [address] [place] [address] SARAH ADEN MD Caregiver [address] [place], [place] [phone] JESUS DYSON Next Of Kin [address] [place], [place] [id number] CP Insurance Providers Payer Name Policy Number Subscriber Name Relationship Auto A Insurance [id number] Jorge Dyson 19 Self Medicare [facility] [employer] Pffs [id number] Jorge Dyson 19 Self Advance Directives Directive [...] F (96.8 - 99.1) Temperature (Calculated Celsius) 36.09340 degrees C (36.0 - 37.3) Pulse Rate [...] Has specimen been collected/obtained? Y Urine Specific [place] April 10, 2014 1:05am 1.025 - Has [...] 07, 2014 5:32pm LAB TEST FORM REQUEST [id number] - HDL Cholesterol Direct August 09, 2011 [...] Source May 07, 2013 2:31pm Nasal - BL-Hwp-N-Type Natriuretic Peptide June 17, 2013 12:30am 394 [...] 2013 12:03pm Name: JORGE DYSON Unit #: [id number] : 1935 Sex: M Loc / Svc: ED DOS: 04/09/14 Signed Report #: [id number] DIAGNOSTIC IMAGING REPORT TYPE OF EXAM: US [...] limb. There is a preliminary report by [facility]. . Procedures No known history of procedures. Encounters Encounter Location Date/Time Departed Emergency Room [facility] 04/12/14 4:26pm Departed Emergency Room [facility] 04/09/14 11:01pm Departed Emergency Room [facility] 04/02/14 8:39pm Departed Emergency Room [facility] 01/24/14 4:37pm Recent Diagnosis
--- OUTSIDE RECORDS SUMMARY | 2016-09-26 06:59 | XMS REPORT | Continuity of Care Document ---
Author Author [facility] Organization [facility] Address Unknown Phone Unavailable Support Name Relationship Address Phone SWATI BRUCE Caregiver [facility] [address] [place] [address] SARAH ADEN MD Caregiver [address] [place], [place] [phone] JESUS DYSON Next Of Kin [address] [place], [place] [address] CP Insurance Providers Payer Name Policy Number Subscriber Name Relationship Auto A Insurance [id number] Jorge Dyson 19 Self Medicare [facility] Solutions Pffs [id number] Jorge Dyson 19 Self Advance Directives Directive [...] F (96.8 - 99.1) Temperature (Calculated Celsius) 36.20514 degrees C (36.0 - 37.3) Pulse Rate [...] Has specimen been collected/obtained? Y Urine Specific [place] April 10, 2014 1:05am 1.025 - Has [...] 07, 2014 5:32pm LAB TEST FORM REQUEST [id number] - HDL Cholesterol Direct August 09, 2011 [...] Source May 07, 2013 2:31pm Nasal - OP-Izp-M-Type Natriuretic Peptide June 17, 2013 12:30am 394 [...] 2013 12:03pm Name: JORGE DYSON Unit #: [id number] : 1935 Sex: M Loc / Svc: ED DOS: 04/02/14 Signed Report #: [id number] DIAGNOSTIC IMAGING REPORT TYPE OF EXAM: CT [...] Encounters Encounter Location Date/Time Departed Emergency Room [facility] 04/09/14 11:01pm Departed Emergency Room [facility] 04/02/14 8:39pm Departed Emergency Room [facility] 01/24/14 4:37pm Recent Diagnosis
--- OUTSIDE RECORDS SUMMARY | 2016-09-26 06:59 | XMS REPORT | Continuity of Care Document ---
Author Author [facility] Organization [facility] Address Unknown Phone Unavailable Support Name Relationship Address Phone SHERIN ARZOLA MD Caregiver [facility] [address] [place] [address] Unavailable SARAH ADEN MD Caregiver [address] [place], [place] [phone] DYSONJESUS MCKEON Next Of Kin [address] [place], [place] [address] [phone] CP Insurance Providers Payer Name Policy Number Subscriber Name Relationship Auto A Insurance [id number] Jorge Dyson 19 Self Medicare [facility] [employer] Pffs [id number] Jorge Dyson 19 Self Problems Medical Problems [...] F (96.8 - 99.1) Temperature (Calculated Celsius) 36.77547 degrees C (36.0 - 37.3) Pulse Rate [...] Has specimen been collected/obtained? Y Urine Specific [place] February 07, 2014 3:00pm 1.020 - Urine [...] 07, 2014 5:32pm LAB TEST FORM REQUEST [id number] - HDL Cholesterol Direct August 09, 2011 [...] Source May 07, 2013 2:31pm Nasal - VT-Bmn-W-Type Natriuretic Peptide June 17, 2013 12:30am 394 [...] 2013 12:03pm Name: JORGE DYSON Unit #: [id number] : 1935 Sex: M Loc / Svc: ED DOS: 01/24/14 Signed Report #: [id number] DIAGNOSTIC IMAGING REPORT TYPE OF EXAM: CT [...] Encounters Encounter Location Date/Time Departed Emergency Room [facility] 04/02/14 8:39pm Departed Emergency Room [facility] 01/24/14 4:37pm Recent Diagnosis
--- OUTSIDE RECORDS SUMMARY | 2016-09-26 07:00 | XMS REPORT | Continuity of Care Document ---
Author Author [facility] Organization [facility] Address Unknown Phone Unavailable Support Name Relationship Address Phone JESUS DYSON Next Of Kin [address] [place] [address] Unavailable Insurance Providers Payer Name Policy Number Subscriber Name Relationship Medicare [facility] Solutions Pffs [id number] Mack Dyson 19 Self Problems No Known [...] Code Date CATARACT SURG W/IOL 1 STAGE 47278 12/10/08 CATARACT SURG W/IOL 1 STAGE 47059 01/07/09 FEMORAL BIOPSY 77.45 11/02/10 CLOSED RED-INT FIX FEMUR 79.15 11/02/10 AMBULAT & GAIT TRAINING 93.22 11/08/10 PT EXERCISE NEC 93.19 11/08/10 OCCUPATIONAL THERAPY 93.83 11/06/10 HYDRATION IV INFUSION INIT 02496 08/04/11 PT EXERCISE NEC 93.19 09/07/11 OCCUPATIONAL THERAPY 93.83 09/07/11 OTHER SPEECH THERAPY 93.75 09/08/11 AMBULAT & GAIT TRAINING 93.22 09/14/11 REMOVAL OF SUPPORT IMPLANT 96313 10/20/11 TOTAL HIP REPLACEMENT 81.51 01/26/12 REMOVE INT FIX DEV-FEMUR 78.65 01/26/12 HIP BEARING SURFACE, RABCQ-MO-VGIOBMMOBANC 00.74 01/26/12 PT EXERCISE NEC 93.19 01/31/12 AMBULAT & GAIT TRAINING 93.22 01/31/12 OCCUPATIONAL THERAPY 93.83 01/31/12 HYDRATION IV INFUSION INIT 96228 04/08/12 THER/PROPH/DIAG INJ [place] PUSH 84268 07/02/12 TOTAL HIP REPLACEMENT 81.51 09/04/12 HIP BEARING SURFACE, LHUFU-OI-GUBUZZAPPSGL 00.74 09/04/12 PT EXERCISE NEC 93.19 09/08/12 AMBULAT & GAIT TRAINING 93.22 09/08/12 OCCUPATIONAL THERAPY 93.83 09/08/12 THER/PROPH/DIAG INJ IV PUSH 15988 01/09/13 [place]ATE [place] INFUSION ADD-ON 84865 01/09/13 Encounters Encounter Location Date/Time Departed Emergency Room [facility] 01/09/13 12:47pm Discharged Inpatient [facility] 09/07/12 1:58pm
--- OUTSIDE RECORDS SUMMARY | 2016-09-26 07:00 | XMS REPORT | Continuity of Care Document ---
Author Author [facility] Organization [facility] Address Unknown Phone Unavailable Allergies Active Description Code Type Severity Reaction Onset Reported/Identified Relationship to Patient Clinical Status Yes ATIVAN 56398231147 Drug Allergy N/A N/A Yes CODEINE Drug Allergy N/A N/A Yes IBUPROFEN 5640 Drug Allergy N/A N/A Yes MIRTAZAPINE [id number] Drug Allergy N/A N/A Yes OLANZAPINE [id number] Drug Allergy N/A N/A Yes OXYCODONE Drug Allergy N/A N/A Yes REMERON [id number] Drug Allergy N/A N/A Yes TAMOXIFEN CITRATE [id number] Drug Allergy N/A N/A Yes LORazepam NKMA [...] 5.5 NA 5.0-8.0 Protein Trace Negative Specific [place] 1.029 NA 1.003-1.030 UA Collection type Skinner [...] Status Pt. Type Provider Facility Loc./Unit Complaint [id number] 09/26/2013 15:44:00 09/26/2013 23 :59:59 CLS Outpatient
--- OUTSIDE RECORDS SUMMARY | 2016-09-26 07:00 | XMS REPORT | Continuity of Care Document ---
Author Author [facility] Organization [facility] Address Unknown Phone Unavailable Support Name Relationship Address Phone SARAH ADEN MD Caregiver [address] [facility] [address] [place] [phone] JOSE CARROLL MD Caregiver [address] [place] [phone] JESUS DYSON Next Of Kin [address] [place], [place] [address] CP Insurance Providers Payer Name Policy Number Subscriber Name Relationship Medicare [employer] [employer] Pffs [id number] Jorge Dyson 19 Self Advance Directives Directive [...] F (96.8 - 99.1) Temperature (Calculated Celsius) 35.45212 degrees C (36.0 - 37.3) Pulse Rate [...] Has specimen been collected/obtained? Y Urine Specific [place] January 24, 2014 6:25pm 1.025 - Has [...] 07, 2013 6:54pm LAB TEST FORM REQUEST [id number] - HDL Cholesterol Direct August 09, 2011 [...] Source May 07, 2013 2:31pm Nasal - QF-Nmf-T-Type Natriuretic Peptide June 17, 2013 12:30am 394 [...] 2013 12:03pm Name: JORGE DYSON Unit #: [id number] : 1935 Sex: M Loc / Svc: ED DOS: 12/01/13 Signed Report #: [id number] DIAGNOSTIC IMAGING REPORT TYPE OF EXAM: CT [...] injury. There is a preliminary report by [employer]. . Procedures Procedure Status Date Provider(s) PLACE NEEDLE IN VEIN completed 12/01/13 JOSE CARROLL MD Encounters Encounter Location Date/Time Departed Emergency Room [facility] 01/24/14 4:37pm Departed Emergency Room [facility] 12/01/13 8:18pm Recent Diagnosis
--- OUTSIDE RECORDS SUMMARY | 2016-09-26 07:01 | XMS REPORT | Continuity of Care Document ---
Author Author [facility] LIVE Organization [facility]IVE Address Unknown Phone Unavailable Support Name Relationship Address Phone SARAH ADEN MD Caregiver [address] [facility] [address] [place] [phone] GITA HASTINGS MD Caregiver [address] [place] [address] KIELMARIY Next Of Kin [address] [place], [place] [id number] CP Insurance Providers Payer Name Policy Number Subscriber Name Relationship Premises Med(Medicare/Caid/Tr [id number] Jorge Dyson 19 Self Medicare [facility] [employer] Pffs [id number] Jorge Dyson 19 Self Advance Directives Directive [...] F (96.8 - 99.1) Temperature (Calculated Celsius) 36.67710 degrees C (36.0 - 37.3) Pulse Rate [...] Has specimen been collected/obtained? Y Urine Specific [place] June 21, 2014 10:15pm 1.025 - Has [...] 07, 2014 5:32pm LAB TEST FORM REQUEST [id number] - HDL Cholesterol Direct August 09, 2011 [...] Source May 07, 2013 2:31pm Nasal - KQ-Doc-Y-Type Natriuretic Peptide June 17, 2013 12:30am 394 [...] 2013 12:03pm Name: JORGE DYSON Unit #: [id number] : 1935 Sex: M Loc / Svc: ED DOS: 04/09/14 Signed Report #: [id number] DIAGNOSTIC IMAGING REPORT TYPE OF EXAM: US [...] limb. There is a preliminary report by [employer]. . Procedures Procedure Status Date Provider(s) RPR S/N/AX/GEN/TRNK 2.5CM/< completed 04/02/14 SHERIN ARZOLA MD Encounters Encounter Location Date/Time Departed Emergency Room [facility] 06/21/14 8:50pm Departed Emergency Room [facility] 04/12/14 4:26pm Departed Emergency Room [facility] 04/09/14 11:01pm Departed Emergency Room [facility] 04/02/14 8:39pm Recent Diagnosis
--- NOTE | 2016-09-26 07:02 | NUR ---
DR Tj OLEARY INTO SEE PT AT THIS TIME.
--- NOTE | 2016-09-26 07:12 | NUR ---
RAD PT TO CT SCAN.
--- NOTE | 2016-09-26 07:14 | ERPDOC ---
Departure Disposition Decision Date: Sep 26, 2016 Disposition Decision Time: 08:20 Disposition: 01 DISCHARGED HOME, SELF-CARE Impression Impression Impression: Primary Impression: Minor head injury Encounter type: initial encounter Qualified Codes: S00.90XA - Unspecified superficial injury of unspecified part of head, initial encounter Additional Impressions: Laceration of head Encounter type: initial encounter Location of open wound of head: scalp Foreign body presence: without foreign body Qualified Codes: S01.01XA - Laceration without foreign body of scalp, initial encounter Elbow abrasion Encounter type: initial encounter Laterality: left Qualified Codes: S50.312A - Abrasion of left elbow, initial encounter Severity: Moderate Condition: Stable Seen By: Physician only Referrals: SARAH ADEN MD (Family) 1 Week staple removal Patient Instructions: Fall Prevention (ED), Head Injury (ED), Laceration (ED) Problems/Meds/Labs Reviewed?: Yes Medications reviewed and manag: Yes Additional Instructions: Home to rest. May apply topical antibiotic ointment to left elbow and to area on head with aysh daily until healed. [place] out in one week at PCP's office. Tylenol as needed for pain. See head injury instructions. Follow up care ordered?: Yes Mental Status: Alert, Confused HPI - Fall/Injury General Chief Complaint: Fall Stated Complaint: FALL/HEAD INJURY Time Seen by Provider: 06:48 Source: patient, RN notes reviewed, old records Exam Limitations: no limitations HPI - Fall/Injury Initial Comments This patient who resides in a senior living was found on the floor calling for help this morning. His bed alarm had gone off earlier in the night but was not alarming on this occasion. He was noted to have a head laceration and a left elbow abrasion, so he was transported in for evaluation. The patient has profound dementia and is unable to give history. He answers yes when asked if he hurts anywhere, but is unable to localize any source of the pain. Occurred At: home Onset: Rapid Duration: 1-3 hrs Pain Scale: Now: Unable to Rate Injuries/Pain Location: head, upper extremity 1 - laceration, curvilinear Context: unknown Loss of Consciousness: unsure Associated Symptoms: denies symptoms Hx of Similar Symptoms: Yes (hx of prior falls) Allergies: Coded Allergies: lorazepam (Verified Allergy, Severe, ALTERED MENTAL STATUS, 09/26/16) ibuprofen (Verified Allergy, Unknown, 09/26/16) PER H&P DATED 03-24-15 BY Elijah [employer] mirtazapine (Verified Allergy, Unknown, hallucinations/mood alterations, ) olanzapine (Verified Allergy, Unknown, 09/26/16) PER H&P DATED 03-24-15 BY Meredith [employer] oxycodone (Verified Allergy, Unknown, ALTERED MENTAL STATUS, 09/26/16) tamoxifen (Verified Allergy, Unknown, COGNITIVE REACTION LIKE ALZHEIMERS, 09/26/16) haloperidol (Verified Adverse Reaction, Unknown, alters behavior, 09/26/16) Past History Patient Surgical History Tonsillectomy Right femur fracture fixation (pathologic fracture) Right total hip replacement Left total hip replacement Left knee replacement Bilateral cataract surgery Past Medical History Metabolic: cancer (breast with mets to bone), hypertension Cardiac: CHF Hx Echocardiogram: No GI: constipation Male: BPH, UTI, renal insufficiency Neurological: CVA Musculoskeletal: osteoarthritis Hematologic: anemia Psychological: dementia Surgical History General: other, tonsils Joint: hip, knee Family History Family PMH: FOUND: hypertension Vaccines Hx Influenza Vaccination: Yes (2014) Hx Pneumococcal Vaccination: Yes (2012) Hx Tetanus Diptheria: Yes Hx Tetanus, Diptheria, Pertuss: Yes (2013) Social History Smoking Status: Unknown if ever smoked Second Hand Exposure: No Alcohol Intake: none Sexuality: female partner Housing: senior living Household Members: spouse Current Occupational Status: retired Advance Directives: Yes DNR Record Review Pertinent history updated: Yes Review of Systems Unable to Obtain ROS Due to: dementia Physical Exam General General Nourishment: well nourished, well developed, appears stated age, no acute distress General Body Habitus: well groomed Vitals and Pain First Documented Vital Signs Date Time Temp Pulse Resp B/P Pulse Ox O2 Delivery O2 Flow Rate FiO2 09/26/16 06:37 71 16 120/72 95 Room Air 09/26/16 08:47 96.8 Weight: Kilograms: Height (feet): 5 Height (inches): 9.00 Triage Pain Scale: RN VS reviewed by Provider: Yes Normal Exams: Eyes: Pupils are PERRLA w/ EOMI, No scleral icterus, irritation, or foreign bodies noted ENMT: No facial trauma, nasal exudates, pharyngeal erythema, or exudates are noted Dental: No fractured, loose, or missing teeth noted Neck: Full range of motion (moves neck spontaneously, no apparent pain with palpation), without adenopathy, JVD, bruits or thyromegaly Chest/Resp: Clear all malik, with good airflow, and symmetry bilaterally CV: Regular rate and rhythm, Pulses 2+ all extremities, no pedal edema noted Abdomen: Bowel sounds positive, soft, non-tender, non-distended Musculoskeletal: No tenderness, or deformity noted, good range of motion Neurologic: Patient is alert, cranial nerves, motor/sensory/cerebellar, exams w /o gross deficits, to observation Integumentary (brief) Comments curvilinear laceration to left parietal region, good hemostasis, abrasion to let elbow Neurologic (brief) Comments speech is intelligible, does not always make sense. Known dementia. Psychiatric (brief) Psychiatric Brief: FOUND: alert, normal affect Differential Diagnoses Considering: Abrasion, Concussion, Epidural Hematoma, Fracture, Subdural Hematoma, Other (laceration) Procedures Procedures Performed Procedures Performed: Laceration Repair Laceration/Wound Repair Wound/Laceration Repair : Wound Location: head Wound Length (cm): 3 Depth, Shape: subcutaneous Explored: clean Prep: chlorasept Volume Anesthetic (ccs): 0 Wound Revision?: No Repaired With: [place] (3) Layer Closure?: No Extensor Tendon Repair?: No Sterile Dressing Applied?: No Splint Applied?: No Sling Applied?: No Progress tolerated repair well Progress Results/Orders Orders Procedure Category Date Status Time Ct Head W/O Contrast CT 09/26/[address] Cervical Spine W/O CT 09/26/16 Resulted Contrast Progress Progress Patient tolerated repair well. Will send with head injury instructions. CT Date CT Interpreted for [place]: Sep 26, 2016 CT #1: CT: Head no contrast Interpretation: Normal, Faxed Report CT #2: CT: C-Spine no contrast Interpretation: Abnormal (degenrative disc disease, no fracture), Faxed Report LION OLEARY MD Sep 26, 2016 07:14
--- NOTE | 2016-09-26 07:20 | NUR ---
RETURNS PT RETURNS FROM CT SCAN.
--- NOTE | 2016-09-26 08:17 | NUR ---
PATRICIA DR. Tj OLEARY AT BEDSIDE TO PLACE PATRICIA TO LEFT HEAD LAC.
--- NOTE | 2016-09-26 08:24 | DI ---
Indication: ITS.REASON: fall, head lac PROCEDURE: CT HEAD W/O CONTRAST: Encounter: Initial Comparison: CT head without contrast, 06/15/2016 Technique: Axial CT images through the head were performed without contrast. Iterative Reconstruction dose reducing technique was utilized. FINDINGS: The ventricles are of normal size, shape, and contour for the patient's age. There are scattered areas of low attenuation in the white matter which most likely represent changes from chronic microvascular ischemia. The brainstem, cerebellum, and cerebral hemispheres otherwise have a normal morphology and CT attenuation. There is no evidence of midline displacement. No hemorrhage, signs of acute territorial stroke, mass effect, mass lesions, or edema is evident. The visualized portions of the skull base, midface, and calvarium demonstrate no abnormality. The paranasal sinuses are well aerated and free of significant disease. The tympanic and mastoid cavities appear normal. IMPRESSION: No acute intracranial abnormality or hemorrhage. .
--- NOTE | 2016-09-26 08:26 | DI ---
Indication: ITS.REASON: fall, head injury PROCEDURE: CT CERVICAL SPINE W/O CONTRAST: Encounter: Initial Comparison: None Technique: Axial CT images through the cervical spine were performed without contrast. Coronal and sagittal reformatted images were also obtained. Automated Exposure Control and Iterative Reconstruction dose reducing techniques were utilized. FINDINGS: Diffuse degenerative disc disease with loss of the typical cervical lordosis with actual kyphosis near the C5-C7 levels where there are discogenic degenerative changes and spinal stenosis with foraminal encroachment. However, facets articulate satisfactorily although degenerative changes of these are noted as well. There are is diffuse foraminal encroachment of the mid and lower cervical spine more severe on the left. Cervicothoracic junction unremarkable. Odontoid process intact. Paravertebral soft tissues unremarkable. IMPRESSION: 1. No acute traumatic abnormality of the cervical spine. 2. Moderately advanced degenerative disc disease of the lower cervical spine. .
[2016-09-26 08:47] VITALS: BP 119/68; PULSE 60; RESP 16; TEMP 96.8; O2SAT 93
--- NOTE | 2016-09-26 08:47 | NUR ---
DISMISSAL INSTRUCTIONS GIVEN/REVIEWED WITH PT'S AND NH CAREGIVER. VERBALIZE UNDERSTANDING. PT ASSISTED TO W/C FOR DISMISSAL. CARE SIGNED OFF AT THIS TIME.
== END 2016-09-26 08:47 | disposition home or self-care (01) ==
LOC: ED 06:37
DX: S01.01XA Laceration without foreign body of scalp, initial encounter (principal); S50.312A Abrasion of left elbow, initial encounter; W06.XXXA Fall from bed, initial encounter; Y93.9 Activity, unspecified; Y92.122 Bedroom in nursing home as the place of occurrence of the external cause; Y99.8 Other external cause status

== ENCOUNTER → 2016-10-03 | Outpatient (CLI) | payer MEDICARE, OTHER | LOC: LABNH.BH 00:26 | PROVIDERS: ATTEND Psychiatry & Neurology Clinical Neurophysiology | DX: D51.0 Vitamin B12 deficiency anemia due to intrinsic factor deficiency (principal) | CPT/HCPCS: 36415; 82607; P9604 ==